=== PATIENT | female | born 1955 | race American Indian/Alaskan Native ===

== ENCOUNTER 2017-05-25 06:58 | Inpatient (IN) ==
[2017-05-25] MEDS ORDERED: IOPAMIDOL 100 ML BOTTLE IV ONE (06:59)
--- NOTE | 2017-05-25 07:43 | Emergency Department Note ---
General Adult HPI - General Chief complaint: Shortness of Breath/Dyspnea Stated complaint: shortness of breath, chest pain, flank pain Time Seen by Provider: 05/25/17 07:36 Source: patient Mode of arrival: ambulatory Limitations: no limitations - History of Present Illness HPI Narrative: This patient has had some flulike symptoms for last several days with nausea cough some shortness of breath. Also some ache over her low back and she does self catheterize for urinary incontinence no diarrhea, mild chest discomfort - Related Data Home Medications Medication Instructions Recorded Confirmed ALPRAZolam [Xanax] 0.5 - 1 mg PO PRN PRN 05/25/17 05/25/17 Albuterol Sulfate [Proair Hfa] 8.5 gm IH Q4-6HP PRN 05/25/17 05/25/17 Carvedilol [Coreg] 12.5 mg PO BIDCC 05/25/17 05/25/17 Cetirizine [Zyrtec] 10 mg PO HS 05/25/17 05/25/17 FLUoxetine HCL [Prozac] 60 mg PO DAILY 05/25/17 05/25/17 Hydrocodone/APAP 7.5/325Mg [[place] 1 tab PO TID 05/25/17 05/25/17 7.5-325Mg] Leflunomide [Arava] 20 mg PO DAILY 05/25/17 05/25/17 Losartan [Cozaar] 100 mg PO DAILY 05/25/17 05/25/17 Mometasone/Formoterol [Dulera 200 2 puff IH BID 05/25/17 05/25/17 Mcg/5 Mcg Inhaler] Propylene Glycol/Peg 400 15 ml OU QIDP PRN 05/25/17 05/25/17 [Lubricant Eye Drops] Tiotropium Medon [Spiriva] 18 mcg INH DAILY 05/25/17 05/25/17 predniSONE [Prednisone] 5 mg PO QAMCC 05/25/17 05/25/17 Previous Rx's Medication Instructions Recorded Azithromycin [Zithromax] 500 mg PO DAILY #6 tab 05/28/17 Cefdinir 300 mg PO BID #8 cap 05/28/17 Allergies Allergy/AdvReac Type Severity Reaction Status Date / Time No Known Drug Allergies Allergy Verified 05/25/17 07:03 Review of Systems All systems ED: reviewed and negative except as stated. Past Medical History - Past Medical History Medical history: Reports: arthritis (Rheumatoid), COPD Surgical history ED: Reports: non-contributory - Social History smoking status: Former smoker Alcohol use: Reports: Occasionally Physical Exam Limitations: no limitations General appearance: alert Head: atraumatic Eye: Present: normal appearance ENT: normal exam Neck: Present: normal inspection Chest: Present: normal inspection Respiratory: Present: normal lung sounds bilaterally Cardiovascular: Present: regular rate, normal rhythm, normal heart sounds Abdominal: Present: soft. Absent: distention, tenderness Neurological: Present: alert Psychiatric: Present: normal affect, normal mood Skin: Present: warm, dry, intact Course Vital Signs Temperature 98.0 F 05/25/17 06:59 Pulse Rate 107 H 05/25/17 06:59 Respiratory Rate 22 05/25/17 06:59 Blood Pressure 193/98 05/25/17 06:59 Pulse Oximetry (%) 98 05/25/17 06:59 Temperature 98.1 F 05/28/17 10:41 Pulse Rate 87 05/28/17 10:41 Respiratory Rate 16 05/28/17 10:41 Blood Pressure 148/78 05/28/17 10:41 Pulse Oximetry (%) 95 05/28/17 10:41 Medical Decision Making - Lab Data Lab results reviewed: Yes I reviewed the patient's lab results. Result diagrams: 05/28/17 04:40 05/28/17 04:40 Lab Results 05/25/17 05/25/17 05/25/17 Range/Units 07:27 07:27 07:27 WBC 13.9 H (4.5-11.0) K/mcL RBC 3.91 L (4.00-5.20) M/mcL Hgb 11.6 L (12.0-15.0) g/dL Hct 34.5 L (36.0-48.0) % MCV 88.1 (80.0-100.0) fL MCH 29.7 (26.0-34.0) pg MCHC 33.7 (31.0-36.0) g/dL RDW 14.6 H (11.5-14.5) % Plt Count 406 (140-440) K/mcL MPV 7.8 (7.4-10.4) fL Total Counted 100 Seg Neutrophils % 82 H (38-78) % Band Neutrophils % Not Reportable Lymphocytes % 14 L (15-49) % Monocytes % (Manual) 4 (1-12) % Platelet Estimate Normal (NORMAL) RBC Morphology Abnorm A (NORMAL) Anisocytosis Few A (NONE SEEN) ESR (0-20) mm/hr D-Dimer 2.09 H (0.00-0.40) ug/ml VBG Lactic Acid (0.5-2.2) mmol/L Sodium 136 (133-145) mmol/L Potassium 3.4 (3.3-5.1) mmol/L Chloride 97 (96-108) mmol/L Carbon Dioxide 22 (22-30) mmol/L Anion Gap 17.0 H (8-16) BUN 11 (8-23) mg/dl Creatinine 0.6 (0.6-1.1) mg/dl GFR Calculation 98 Glucose 108 H (70-105) mg/dL Calcium 9.2 (8.6-10.4) mg/dl Total Bilirubin 0.5 (0.0-1.0) mg/dL AST 30 (0-37) U/l ALT 35 (0-40) U/l Alkaline Phosphatase 102 (39-117) U/L Troponin T (0-0.03) ng/ml C-Reactive Protein (0.0-0.8) mg/dl Total Protein 7.3 (5.9-8.4) gm/dL Albumin 4.0 (3.2-5.2) gm/dL Globulin 3.3 (2.2-3.7) gm/dL Albumin/Globulin Ratio 1.2 (1.0-2.3) Urine Color Urine Appearance Urine pH (5.0-9.0) Ur Specific [place] (1.000-1.035) Urine Protein (NEG) mg/dL Urine Glucose (UA) (NEG) mg/dL Urine Ketones (NEG) mg/dL Urine Occult Blood (<0.03) mg/dL Urine Nitrate (NEG) Urine Bilirubin (NEG) mg/dL Urine Urobilinogen (NEG) mg/dL Ur Leukocyte Esterase (NEG) /uL Urine RBC (0-1) /hpf Urine WBC (0-4) /hpf Ur Squamous Epith Cells (0-4) /hpf Ur Transition Epith Cell (0-2) /hpf Urine Bacteria (0) /hpf Urine Mucus (0) /hpf Ur Culture Indicated? Ur L.pneumophila Ag Mycoplasma pneumon IgM (NEGATIVE) Ur Strep pneumoniae Ag (NEGATIVE) 05/25/17 05/25/17 05/25/17 Range/Units 07:27 07:27 07:27 WBC (4.5-11.0) K/mcL RBC (4.00-5.20) M/mcL Hgb (12.0-15.0) g/dL Hct (36.0-48.0) % MCV (80.0-100.0) fL MCH (26.0-34.0) pg MCHC (31.0-36.0) g/dL RDW (11.5-14.5) % Plt Count (140-440) K/mcL MPV (7.4-10.4) fL Total Counted Seg Neutrophils % (38-78) % Band Neutrophils % Lymphocytes % (15-49) % Monocytes % (Manual) (1-12) % Platelet Estimate (NORMAL) RBC Morphology (NORMAL) Anisocytosis (NONE SEEN) ESR 45 H (0-20) mm/hr D-Dimer (0.00-0.40) ug/ml VBG Lactic Acid (0.5-2.2) mmol/L Sodium (133-145) mmol/L Potassium (3.3-5.1) mmol/L Chloride (96-108) mmol/L Carbon Dioxide (22-30) mmol/L Anion Gap (8-16) BUN (8-23) mg/dl Creatinine (0.6-1.1) mg/dl GFR Calculation Glucose (70-105) mg/dL Calcium (8.6-10.4) mg/dl Total Bilirubin (0.0-1.0) mg/dL AST (0-37) U/l ALT (0-40) U/l Alkaline Phosphatase (39-117) U/L Troponin T < 0.01 (0-0.03) ng/ml C-Reactive Protein (0.0-0.8) mg/dl Total Protein (5.9-8.4) gm/dL Albumin (3.2-5.2) gm/dL Globulin (2.2-3.7) gm/dL Albumin/Globulin Ratio (1.0-2.3) Urine Color Urine Appearance Urine pH (5.0-9.0) Ur Specific [place] (1.000-1.035) Urine Protein (NEG) mg/dL Urine Glucose (UA) (NEG) mg/dL Urine Ketones (NEG) mg/dL Urine Occult Blood (<0.03) mg/dL Urine Nitrate (NEG) Urine Bilirubin (NEG) mg/dL Urine Urobilinogen (NEG) mg/dL Ur Leukocyte Esterase (NEG) /uL Urine RBC (0-1) /hpf Urine WBC (0-4) /hpf Ur Squamous Epith Cells (0-4) /hpf Ur Transition Epith Cell (0-2) /hpf Urine Bacteria (0) /hpf Urine Mucus (0) /hpf Ur Culture Indicated? Ur L.pneumophila Ag Mycoplasma pneumon IgM Positive A (NEGATIVE) Ur Strep pneumoniae Ag (NEGATIVE) 05/25/17 05/25/17 05/25/17 Range/Units 07:27 08:06 08:24 WBC (4.5-11.0) K/mcL RBC (4.00-5.20) M/mcL Hgb (12.0-15.0) g/dL Hct (36.0-48.0) % MCV (80.0-100.0) fL MCH (26.0-34.0) pg MCHC (31.0-36.0) g/dL RDW (11.5-14.5) % Plt Count (140-440) K/mcL MPV (7.4-10.4) fL Total Counted Seg Neutrophils % (38-78) % Band Neutrophils % Lymphocytes % (15-49) % Monocytes % (Manual) (1-12) % Platelet Estimate (NORMAL) RBC Morphology (NORMAL) Anisocytosis (NONE SEEN) ESR (0-20) mm/hr D-Dimer (0.00-0.40) ug/ml VBG Lactic Acid 1.6 (0.5-2.2) mmol/L Sodium (133-145) mmol/L Potassium (3.3-5.1) mmol/L Chloride (96-108) mmol/L Carbon Dioxide (22-30) mmol/L Anion Gap (8-16) BUN (8-23) mg/dl Creatinine (0.6-1.1) mg/dl GFR Calculation Glucose (70-105) mg/dL Calcium (8.6-10.4) mg/dl Total Bilirubin (0.0-1.0) mg/dL AST (0-37) U/l ALT (0-40) U/l Alkaline Phosphatase (39-117) U/L Troponin T (0-0.03) ng/ml C-Reactive Protein 1.3 H (0.0-0.8) mg/dl Total Protein (5.9-8.4) gm/dL Albumin (3.2-5.2) gm/dL Globulin (2.2-3.7) gm/dL Albumin/Globulin Ratio (1.0-2.3) Urine Color Yellow Urine Appearance Hazy Urine pH 8.0 (5.0-9.0) Ur Specific [place] 1.012 (1.000-1.035) Urine Protein 30 A (NEG) mg/dL Urine Glucose (UA) Negative (NEG) mg/dL Urine Ketones 20 A (NEG) mg/dL Urine Occult Blood >=1.0 A (<0.03) mg/dL Urine Nitrate Pos A (NEG) Urine Bilirubin Neg (NEG) mg/dL Urine Urobilinogen Neg (NEG) mg/dL Ur Leukocyte Esterase 75 A (NEG) /uL Urine RBC > 182 H (0-1) /hpf Urine WBC 26 H (0-4) /hpf Ur Squamous Epith Cells 1 (0-4) /hpf Ur Transition Epith Cell < 1 (0-2) /hpf Urine Bacteria Few A (0) /hpf Urine Mucus Few (0) /hpf Ur Culture Indicated? Yes Ur L.pneumophila Ag Mycoplasma pneumon IgM (NEGATIVE) Ur Strep pneumoniae Ag (NEGATIVE) 05/25/17 05/25/17 Range/Units 08:24 08:24 WBC (4.5-11.0) K/mcL RBC (4.00-5.20) M/mcL Hgb (12.0-15.0) g/dL Hct (36.0-48.0) % MCV (80.0-100.0) fL MCH (26.0-34.0) pg MCHC (31.0-36.0) g/dL RDW (11.5-14.5) % Plt Count (140-440) K/mcL MPV (7.4-10.4) fL Total Counted Seg Neutrophils % (38-78) % Band Neutrophils % Lymphocytes % (15-49) % Monocytes % (Manual) (1-12) % Platelet Estimate (NORMAL) RBC Morphology (NORMAL) Anisocytosis (NONE SEEN) ESR (0-20) mm/hr D-Dimer (0.00-0.40) ug/ml VBG Lactic Acid (0.5-2.2) mmol/L Sodium (133-145) mmol/L Potassium (3.3-5.1) mmol/L Chloride (96-108) mmol/L Carbon Dioxide (22-30) mmol/L Anion Gap (8-16) BUN (8-23) mg/dl Creatinine (0.6-1.1) mg/dl GFR Calculation Glucose (70-105) mg/dL Calcium (8.6-10.4) mg/dl Total Bilirubin (0.0-1.0) mg/dL AST (0-37) U/l ALT (0-40) U/l Alkaline Phosphatase (39-117) U/L Troponin T (0-0.03) ng/ml C-Reactive Protein (0.0-0.8) mg/dl Total Protein (5.9-8.4) gm/dL Albumin (3.2-5.2) gm/dL Globulin (2.2-3.7) gm/dL Albumin/Globulin Ratio (1.0-2.3) Urine Color Urine Appearance Urine pH (5.0-9.0) Ur Specific [place] (1.000-1.035) Urine Protein (NEG) mg/dL Urine Glucose (UA) (NEG) mg/dL Urine Ketones (NEG) mg/dL Urine Occult Blood (<0.03) mg/dL Urine Nitrate (NEG) Urine Bilirubin (NEG) mg/dL Urine Urobilinogen (NEG) mg/dL Ur Leukocyte Esterase (NEG) /uL Urine RBC (0-1) /hpf Urine WBC (0-4) /hpf Ur Squamous Epith Cells (0-4) /hpf Ur Transition Epith Cell (0-2) /hpf Urine Bacteria (0) /hpf Urine Mucus (0) /hpf Ur Culture Indicated? Ur L.pneumophila Ag Not detected Mycoplasma pneumon IgM (NEGATIVE) Ur Strep pneumoniae Ag Negative (NEGATIVE) - Radiology Data Radiology results reviewed: Yes I reviewed the patient's radiology results. Disposition Pt seen by [employer] INSPECTOR/PA only: No Clinical Impression: Right middle lobe pneumonia Disposition: Xfer As Inpt ([facility]) Condition: Fair
--- NOTE | 2017-05-25 07:50 | XRay Report ---
INDICATION: Dyspnea. Chest pain. TECHNIQUE: PA and lateral upright chest x-ray COMPARISON: Chest x-rays dated 05/23/2017, 03/31/2017, 02/11/2017, 05/04/2014 FINDINGS:Mild right lower lobe pulmonary parenchymal density may be secondary to pneumonia. Clinical correlation follow-up radiograph recommended. There is minimal blunting of a posterior costophrenic sulcus consistent with scarring or very small effusion. Lungs are otherwise negative. No change in heart size. No evidence for congestive heart failure. No hilar or mediastinal adenopathy. IMPRESSION: 1. Mild right lower lobe infiltrate consistent with pneumonia. Follow-up radiograph recommended 2. No other interval change Interpreted and Authenticated by: Spenser Bruno 05/25/17
[2017-05-25 07:54] LABS: Mean Cell Volume 88.1 fL (80.0-100.0); Mean Corpuscular HGB Conc 33.7 g/dL (31.0-36.0); Mean Corpuscular Hemoglobin 29.7 pg (26.0-34.0); Platelet Count 406 K/mcL (140-440); RBC 3.91 M/mcL (4.00-5.20); Red Cell Distribution Width 14.6 % (11.5-14.5)
[2017-05-25] MEDS ORDERED: DOXYCYCLINE 100 MG in DEXTROSE 5% IN WATER 100 ML IV ONE (07:56)
[2017-05-25] MEDS ORDERED: cefTRIAXone 1 GM VIAL IV ONE ×2 (07:56→16:00)
[2017-05-25] MEDS ORDERED: LACTATED RINGERS 1,000 ML IV ONE (08:07)
[2017-05-25 08:17] LABS: ALT/SGPT 35 U/l (0-40); Albumin/Globulin Ratio 1.2 (1.0-2.3); Alkaline Phosphatase 102 U/L (39-117); Blood Urea Nitrogen 11 mg/dl (8-23)
[2017-05-25 08:22] LABS: Anisocytosis FEW (NONE SEEN); Lymphocytes % 14 % (15-49); Monocytes % (Manual) 4 % (1-12); Platelet Estimate NORMAL (NORMAL); RBC Morphology ABNORM (NORMAL); Segmented Neutrophils % 82 % (38-78)
[2017-05-25 09:13] LABS: Appearance,Urine HAZY; Bacteria,Urine FEW /hpf (0); Bilirubin,Urine NEG (NEG); Color,Urine YELLOW; Glucose,Urine (UA) NEGATIVE (NEG); Leukocyte Esterase,Urine 75 /uL (NEG); Mucus,Urine FEW /hpf (0); Protein,Urine 30 mg/dL (NEG); Specific Gravity,Urine 1.012 (1.000-1.035); Urine Blood >=1.0 mg/dL (<0.03); Urine RBC > 182 /hpf (0-1); Urine Squamous Epithelial Cell 1 /hpf (0-4); Urine Transitional Epi Cells < 1 /hpf (0-2); Urine WBC 26 /hpf (0-4); Urobilinogen,Urine NEG (NEG)
[2017-05-25] MEDS ORDERED: IPRATROPIUM/ALBUTEROL 3 ML AMPUL.NEB NEB ONE ×2 (10:03→10:04)
--- NOTE | 2017-05-25 14:00 | Cat Scan Report ---
CLINICAL INFORMATION: Chest pain. Elevated d-dimer. COMPARISON: Chest x-ray dated 05/25/2017 TECHNIQUE: Axial images obtained through the chest. 80 mL intravenous contrast was administered, and scanning was performed during pulmonary arterial phase. Sagittally and coronally reformatted images were obtained. MIP reformatted images. FINDINGS: Main pulmonary artery, right pulmonary artery, left pulmonary artery are negative. No lobar, segmental, or subsegmental abnormalities. Negative examination for pulmonary embolism. There are is severe centrilobular emphysema suggesting smoking history. There is an 8 mm noncalcified nodule in the right middle lobe. No other pulmonary parenchymal nodules. Six month follow-up CT scan is recommended. There are small bilateral pleural effusions. There is mild lower lobe pulmonary parenchymal density, right worse in left. Findings may represent pneumonia or dependent atelectasis. There is mild cardiomegaly. No pathologic hilar or mediastinal lymphadenopathy. No axillary adenopathy. Incidental note is made of an 11 mm right thyroid nodule. Follow-up ultrasound is recommended Images to the upper abdomen are negative. Thoracic spine, sternum, ribs are negative IMPRESSION: 1. Negative pulmonary CTA. No pulmonary embolism 2. Small bilateral pleural effusions. Right worse than left pulmonary parenchymal density may indicate pneumonia or dependent atelectasis 3. Severe centrilobular emphysema 4. 8 mm right middle lobe nodule. Follow-up CT scan necessary 5. 11 mm right thyroid nodule. 6. Cardiomegaly The exam was performed using radiation dose optimization techniques including, but not limited to, automated exposure control, adjustment of the mA and/or kV according to patient size and use of iterative reconstruction technique. Interpreted and Authenticated by: Spenser Bruno 05/25/17
--- NOTE | 2017-05-25 14:13 | Emergency Department Note ---
SOB HPI - General Chief Complaint: Shortness of Breath/Dyspnea Stated Complaint: shortness of breath, chest pain, flank pain Time Seen by Provider: 05/25/17 07:36 Source: patient Mode of arrival: ambulatory Limitations: no limitations - Related Data Home Medications Medication Instructions Recorded Confirmed Mometasone/Formoterol [Dulera 100 1 puff INH DAILY 05/23/17 05/25/17 Mcg/5 Mcg Inhaler] Previous Rx's Medication Instructions Recorded predniSONE [Prednisone] 20 mg PO [id number] #10 tab 05/23/17 Allergies Allergy/AdvReac Type Severity Reaction Status Date / Time No Known Drug Allergies Allergy Verified 05/25/17 07:03 Past Medical History - Past Medical History Medical history: Reports: arthritis (Rheumatoid), COPD Surgical history ED: Reports: non-contributory - Social History smoking status: Former smoker Alcohol use: Reports: Occasionally Physical Exam Limitations: no limitations General appearance: alert Course Vital Signs Temperature 98.0 F 05/25/17 06:59 Pulse Rate 107 H 05/25/17 06:59 Respiratory Rate 22 05/25/17 06:59 Blood Pressure 193/98 05/25/17 06:59 Pulse Oximetry (%) 98 05/25/17 06:59 Temperature 99.3 F H 05/25/17 11:38 Pulse Rate 102 H 05/25/17 13:01 Respiratory Rate 23 H 05/25/17 13:31 Blood Pressure 190/93 05/25/17 13:31 Pulse Oximetry (%) 95 05/25/17 13:01 Shortness of Breath/Dyspnea - MDM Narrative Medical decision making narrative: CTA was negative but pneumonia present. Lactic was 1.0 patient was already given antibiotics by Dr. liao cultures have been drawn DR Pearce contacted and patient to be admitted - Lab Data Result diagrams: 05/25/17 07:27 05/25/17 07:27 Lab Results 05/25/17 05/25/17 05/25/17 Range/Units 07:27 07:27 07:27 WBC 13.9 H (4.5-11.0) K/mcL RBC 3.91 L (4.00-5.20) M/mcL Hgb 11.6 L (12.0-15.0) g/dL Hct 34.5 L (36.0-48.0) % MCV 88.1 (80.0-100.0) fL MCH 29.7 (26.0-34.0) pg MCHC 33.7 (31.0-36.0) g/dL RDW 14.6 H (11.5-14.5) % Plt Count 406 (140-440) K/mcL MPV 7.8 (7.4-10.4) fL Total Counted 100 Seg Neutrophils % 82 H (38-78) % Band Neutrophils % Not Reportable Lymphocytes % 14 L (15-49) % Monocytes % (Manual) 4 (1-12) % Platelet Estimate Normal (NORMAL) RBC Morphology Abnorm A (NORMAL) Anisocytosis Few A (NONE SEEN) D-Dimer 2.09 H (0.00-0.40) ug/ml VBG Lactic Acid (0.5-2.2) mmol/L Sodium 136 (133-145) mmol/L Potassium 3.4 (3.3-5.1) mmol/L Chloride 97 (96-108) mmol/L Carbon Dioxide 22 (22-30) mmol/L Anion Gap 17.0 H (8-16) BUN 11 (8-23) mg/dl Creatinine 0.6 (0.6-1.1) mg/dl GFR Calculation 98 Glucose 108 H (70-105) mg/dL Calcium 9.2 (8.6-10.4) mg/dl Total Bilirubin 0.5 (0.0-1.0) mg/dL AST 30 (0-37) U/l ALT 35 (0-40) U/l Alkaline Phosphatase 102 (39-117) U/L Troponin T (0-0.03) ng/ml Total Protein 7.3 (5.9-8.4) gm/dL Albumin 4.0 (3.2-5.2) gm/dL Globulin 3.3 (2.2-3.7) gm/dL Albumin/Globulin Ratio 1.2 (1.0-2.3) Urine Color Urine Appearance Urine pH (5.0-9.0) Ur Specific [place] (1.000-1.035) Urine Protein (NEG) mg/dL Urine Glucose (UA) (NEG) mg/dL Urine Ketones (NEG) mg/dL Urine Occult Blood (<0.03) mg/dL Urine Nitrate (NEG) Urine Bilirubin (NEG) mg/dL Urine Urobilinogen (NEG) mg/dL Ur Leukocyte Esterase (NEG) /uL Urine RBC (0-1) /hpf Urine WBC (0-4) /hpf Ur Squamous Epith Cells (0-4) /hpf Ur Transition Epith Cell (0-2) /hpf Urine Bacteria (0) /hpf Urine Mucus (0) /hpf Ur Culture Indicated? 05/25/17 05/25/17 05/25/17 Range/Units 07:27 08:06 08:24 WBC (4.5-11.0) K/mcL RBC (4.00-5.20) M/mcL Hgb (12.0-15.0) g/dL Hct (36.0-48.0) % MCV (80.0-100.0) fL MCH (26.0-34.0) pg MCHC (31.0-36.0) g/dL RDW (11.5-14.5) % Plt Count (140-440) K/mcL MPV (7.4-10.4) fL Total Counted Seg Neutrophils % (38-78) % Band Neutrophils % Lymphocytes % (15-49) % Monocytes % (Manual) (1-12) % Platelet Estimate (NORMAL) RBC Morphology (NORMAL) Anisocytosis (NONE SEEN) D-Dimer (0.00-0.40) ug/ml VBG Lactic Acid 1.6 (0.5-2.2) mmol/L Sodium (133-145) mmol/L Potassium (3.3-5.1) mmol/L Chloride (96-108) mmol/L Carbon Dioxide (22-30) mmol/L Anion Gap (8-16) BUN (8-23) mg/dl Creatinine (0.6-1.1) mg/dl GFR Calculation Glucose (70-105) mg/dL Calcium (8.6-10.4) mg/dl Total Bilirubin (0.0-1.0) mg/dL AST (0-37) U/l ALT (0-40) U/l Alkaline Phosphatase (39-117) U/L Troponin T < 0.01 (0-0.03) ng/ml Total Protein (5.9-8.4) gm/dL Albumin (3.2-5.2) gm/dL Globulin (2.2-3.7) gm/dL Albumin/Globulin Ratio (1.0-2.3) Urine Color Yellow Urine Appearance Hazy Urine pH 8.0 (5.0-9.0) Ur Specific [place] 1.012 (1.000-1.035) Urine Protein 30 A (NEG) mg/dL Urine Glucose (UA) Negative (NEG) mg/dL Urine Ketones 20 A (NEG) mg/dL Urine Occult Blood >=1.0 A (<0.03) mg/dL Urine Nitrate Pos A (NEG) Urine Bilirubin Neg (NEG) mg/dL Urine Urobilinogen Neg (NEG) mg/dL Ur Leukocyte Esterase 75 A (NEG) /uL Urine RBC > 182 H (0-1) /hpf Urine WBC 26 H (0-4) /hpf Ur Squamous Epith Cells 1 (0-4) /hpf Ur Transition Epith Cell < 1 (0-2) /hpf Urine Bacteria Few A (0) /hpf Urine Mucus Few (0) /hpf Ur Culture Indicated? Yes Disposition Pt seen by SHRUB GROWER/PA only: No Clinical Impression: Right middle lobe pneumonia Disposition: Xfer As Inpt ([facility]) Condition: Fair Referrals: Wu Brody ARNP [Primary Care Provider] -
[2017-05-25] MEDS ORDERED: guaiFENesin/CODEINE 10 ML UDC PO PRN (15:13)
[2017-05-25] MEDS ORDERED: ONDANSETRON 4 MG/2 ML VIAL IV PRN (15:13)
[2017-05-25] MEDS ORDERED: MAGNESIUM SULFATE 2 GM/50 ML BAG IV PRN (15:13)
[2017-05-25] MEDS ORDERED: traZODone HCL 50 MG TABLET PO PRN (15:13)
[2017-05-25] MEDS ORDERED: cefTRIAXone 2 GM in DEXTROSE 5% IN WATER 50 ML IV SCH (15:13)
[2017-05-25] MEDS ORDERED: POTASSIUM CHLORIDE 20 MEQ PACKET PO PRN (15:13)
[2017-05-25] MEDS: IPRATROPIUM/ALBUTEROL 3 ML AMPUL.NEB NEB SCH ×3 (15:19→23:20)
[2017-05-25] MEDS: 0.9 % SODIUM CHLORIDE 1,000 ML IV SCH (15:53)
[2017-05-25] MEDS: LEVOFLOXACIN 750 MG/150 ML BAG IV SCH (15:54)
[2017-05-25] MEDS: ACETAMINOPHEN 325 MG TABLET PO PRN (16:45)
[2017-05-25] MEDS ORDERED: PROPYLENE GLYCOL OU PRN (17:31)
[2017-05-25] MEDS ORDERED: PEG OU PRN (17:31)
--- NOTE | 2017-05-25 18:08 | History and Physical Report ---
DATE OF ADMISSION: 05/25/2017 DATE OF ADMISSION: 05/25/2017 PRIMARY CARE PHYSICIAN: KASSIE Pinzon REASON FOR ADMISSION: Shortness of breath. HISTORY OF CHIEF COMPLAINT: The patient is a 62-year-old who comes in to [facility] Emergency Room with progressive shortness of breath, dyspnea and had flu-like symptoms that started over 2 weeks and has progressed since Thursday. The patient was evaluated in the ER with worsening dyspnea; however, she had negative imaging. The patient was discharged home. However, over the next 24 hours, the patient continued to get worse with increasing fever, cough, loss of appetite, lethargy, weakness and unable to function. The patient subsequently came to the ER for further evaluation. Initial workup was significant for right lower lobe infiltrate, elevated D-dimer. CT angiogram was performed which was negative for PE. Hospitalist Service was consulted. At the time of evaluation, the patient is accompanied with her family. She was able to provide answers to most of the questions. She does endorse that she has had significant decline in functional status with inability to perform activities of daily living. She actively smoked, but quit one and a half months ago. She endorses loss of appetite. She denies any medication changes. She denies sick contacts, but has not had a flu or pneumonia vaccine. She endorses abdominal distention along with gas symptoms, along with persistent myalgia, which she attributes to rheumatoid arthritis but denies headache, photophobia, neck stiffness, urinary symptoms. REVIEW OF SYSTEMS: A 10-point review of systems was performed and negative except for what was discussed above. PAST MEDICAL HISTORY: Significant for: 1. Seasonal allergy disorder. 2. Rheumatoid arthritis. 3. COPD. 4. History of bladder tumor. The patient is due to follow up with Dr. Rutherford at [place]. ALLERGIES: NONE SIGNIFICANT. CURRENT MEDICATIONS: Prednisone 20. Mometasone inhaled daily. SOCIAL HISTORY: The patient lives with her sister. Anya. Occasional alcohol. Quit smoking 1-1/2 years ago after a 50 pack year history of smoking. PHYSICAL EXAMINATION: GENERAL: The patient is alert and oriented. BMI 17.7. Height 5 feet 9 inches. VITAL SIGNS: Blood pressure 181/81, respiratory rate 30, temperature 98, pulse 107, saturations 98 percent on room air. HEENT: Pupils symmetric. Oral cavity is dry. No ear or nose discharge. Head is normocephalic and atraumatic. Temporal wasting. NECK: No lymphadenopathy noted. HEART: S1, S2, tachycardia. ESM grade 1. CHEST: Diminished breath sounds at bases with bilateral posterior crackles on deep inspiration and expiratory rhonchi. ABDOMEN: Soft and nontender. LOWER EXTREMITIES: No cyanosis or clubbing. No joint swelling. SKIN: No suspicious lesions. PSYCHIATRIC: Alert and cooperative, mild anxiety. NEURO: Nonfocal, moving all four extremities. Normal higher function. LABS AND IMAGING: White count 13.9, hemoglobin 10.6, neutrophils 82 percent. Lactic acid 1.6, sodium 130, potassium 3.4, creatinine 0.6, BUN 11, CRP 1.3. LFTs unremarkable. UA significant for 26 WBCs, nitrite positive. Urine cultures pending. Blood cultures pending. Troponin less than 0.01. CT angiogram chest: Bilateral pleural effusion, pulmonary parenchymal density indicating pneumonia and 8 mm right middle lobe nodule. EKG: Sinus tachycardia. ASSESSMENT AND PLAN: A 62-year-old admitted with basilar pneumonia along with complicated urinary tract infection. 1. Basilar pneumonia. Continue antibiotic coverage with Rocephin, Levaquin and deescalate based on culture and sensitivities. Sputum cultures pending. Streptococcus pneumoniae/legionella/mycoplasma labs elevated. 2. Complicated urinary tract infection. Continue antibiotic coverage. Await cultures. 3. Generalized deconditioning. Physical therapy and occupational therapy along with dietitian for dietary supplements. 4. Prophylaxis will be on heparin. 5. FULL CODE. PLAN FOR TODAY: 1. Admit as inpatient. 2. Antibiotic coverage. 3. Bronchodilators, pulmonary toilet. 4. Deescalate antibiotics based on culture results. 5. The patient will be admitted as an inpatient in light of pneumonia and urinary tract infection with significant deconditioning. [email or web address] Job ID: [id number] Doc ID: [id number] Fran FERNANDO
[2017-05-25] MEDS: BUDESONIDE 0.5 MG/2 ML AMPUL.NEB NEB SCH (19:19)
[2017-05-25] MEDS: SENNOSIDES/DOCUSATE SODIUM 1 TAB TABLET PO SCH (20:57)
[2017-05-25] MEDS: DOCUSATE SODIUM 100 MG CAPSULE PO SCH (20:57)
[2017-05-25] MEDS: HYDROCODONE/APAP 7.5/325MG TABLET PO SCH (20:57)
[2017-05-25] MEDS: HEPARIN 5,000 UNIT/ML VIAL SQ SCH (20:58)
[2017-05-25] MEDS: 0.9 % SODIUM CHLORIDE 10 ML SYRINGE IV SCH (21:00)
[2017-05-26] MEDS: IPRATROPIUM/ALBUTEROL 3 ML AMPUL.NEB NEB SCH ×2 (03:34→07:30)
[2017-05-26] MEDS: 0.9 % SODIUM CHLORIDE 10 ML SYRINGE IV SCH ×3 (05:10→20:46)
[2017-05-26 05:50] LABS: Mean Cell Volume 88.3 fL (80.0-100.0); Mean Corpuscular HGB Conc 33.1 g/dL (31.0-36.0); Mean Corpuscular Hemoglobin 29.2 pg (26.0-34.0); Platelet Count 329 K/mcL (140-440); RBC 3.98 M/mcL (4.00-5.20); Red Cell Distribution Width 14.6 % (11.5-14.5)
[2017-05-26 06:21] LABS: ALT/SGPT 49 U/l (0-40); Albumin 3.5 gm/dL (3.2-5.2); Albumin/Globulin Ratio 1.1 (1.0-2.3); Alkaline Phosphatase 94 U/L (39-117); Bilirubin,Direct < 0.2 mg/dL (0.0-0.3); Blood Urea Nitrogen 6 mg/dl (8-23); Gamma Glutamyl Transpeptidase 103 U/L (5-36); Uric Acid 2.1 mg/dL (2.5-8.0)
[2017-05-26] MEDS: BUDESONIDE 0.5 MG/2 ML AMPUL.NEB NEB SCH (07:31)
[2017-05-26 07:55] LABS: Band Neutrophils % 1 % (0-10); Lymphocytes % 22 % (15-49); Monocytes % (Manual) 11 % (1-12); Platelet Estimate NORMAL (NORMAL); RBC Morphology NORMAL (NORMAL); Segmented Neutrophils % 66 % (38-78)
[2017-05-26] MEDS: ACETAMINOPHEN 325 MG TABLET PO PRN ×2 (09:10→19:10)
--- NOTE | 2017-05-26 10:10 | Internal Med Progress Note ---
Medical - PN: Subj Patient information: Note initiated : 05/26/17 at 10:06 am Service Date, if different from initiated Date: [] Patient: Silke Mc 62 y/o F admitted on 05/25/17 for SOB, Chest Pain, Flank Pain. Chief Complaint: [] Interval history: 62-year-old with history of COPD/emphysema admitted with flulike symptoms along with progressive shortness of breath over the last 2 weeks. Basilar infiltrates with a white count of 13.3. On antibiotic coverage with Rocephin/ Levaquin for empiric community acquired pathogen. 05/26-patient doing well. No overnight events. No concerns per staff. On room air oxygen. White count down to 9000. Mycoplasma IgM positive uggestive of Mycoplasma pneumonia. Cardiomegaly on CT scan with bilateral effusion. Echocardiogram pending - Constitutional Vitals: Vital Signs Temp Pulse Resp BP Pulse Ox 98.2 F 95 H 18 177/78 93 05/26/17 07:41 05/26/17 08:10 05/26/17 08:10 05/26/17 07:41 05/26/17 08:10 Period Temp Pulse Resp BP Sys/Gallagher Pulse Ox Last 24 Hr 97.5 F-99.3 F 86-103 16-30 158-195/72-94 93-96 Intake and Output 05/25/17 05/26/17 05/26/17 21:59 05:59 13:59 Intake Total 120 / 120 170 / 170 200 / 200 Output Total 300 / 300 200 / 200 Balance -180 / -180 -30 / -30 200 / 200 Weight 113 lb Intake & Output: Intake & Output 05/25/17 05/26/17 05/26/17 21:59 05:59 13:59 Intake Total 120 / 120 170 / 170 200 / 200 Output Total 300 / 300 200 / 200 Balance -180 / -180 -30 / -30 200 / 200 Weight 113 lb Intake: Oral 120 / 120 170 / 170 GI Tube Flush 200 / 200 Output: Urine Catheter Amount 300 / 300 200 / 200 Straight 200 / 200 Other: Meal Ice cream Percent of Meal Consumed 100% popcicle Feeding Ability Independent General appearance: cooperative, no acute distress Exam: alert and oriented nonlabored breathing No anxiety Medical - PN: Obj Da - Labs CBC & Chem 7: 05/26/17 04:30 05/26/17 04:30 Labs: Abnormal Lab Results 05/26/17 05/26/17 05/25/17 04:30 04:30 08:24 WBC RBC 3.98 L Hgb 11.6 L Hct 35.1 L RDW 14.6 H Seg Neutrophils % Lymphocytes % RBC Morphology Anisocytosis ESR D-Dimer Carbon Dioxide 21 L Anion Gap 17.0 H BUN 6 L Glucose Uric Acid 2.1 L GGT 103 H AST 66 H ALT 49 H C-Reactive Protein Urine Protein 30 A Urine Ketones 20 A Urine Occult Blood >=1.0 A Urine Nitrate Pos A Ur Leukocyte Esterase 75 A Urine RBC > 182 H Urine WBC 26 H Urine Bacteria Few A Mycoplasma pneumon IgM 05/25/17 05/25/17 05/25/17 07:27 07:27 07:27 WBC RBC Hgb Hct RDW Seg Neutrophils % Lymphocytes % RBC Morphology Anisocytosis ESR 45 H D-Dimer Carbon Dioxide Anion Gap BUN Glucose Uric Acid GGT AST ALT C-Reactive Protein 1.3 H Urine Protein Urine Ketones Urine Occult Blood Urine Nitrate Ur Leukocyte Esterase Urine RBC Urine WBC Urine Bacteria Mycoplasma pneumon IgM Positive A 05/25/17 05/25/17 05/25/17 07:27 07:27 07:27 WBC 13.9 H RBC 3.91 L Hgb 11.6 L Hct 34.5 L RDW 14.6 H Seg Neutrophils % 82 H Lymphocytes % 14 L RBC Morphology Abnorm A Anisocytosis Few A ESR D-Dimer 2.09 H Carbon Dioxide Anion Gap 17.0 H BUN Glucose 108 H Uric Acid GGT AST ALT C-Reactive Protein Urine Protein Urine Ketones Urine Occult Blood Urine Nitrate Ur Leukocyte Esterase Urine RBC Urine WBC Urine Bacteria Mycoplasma pneumon IgM Meds: Medications Acetaminophen (Tylenol) 650 mg PO Q4-6HP PRN PRN Reason: PAIN/FEVER > 101 Last Admin: 05/26/17 09:10 Dose: 650 mg Hydrocodone Bitart/Acetaminophen ([place] 7.5/325mg) 1 tab PO TID [facility] Last Admin: 05/25/17 20:57 Dose: 1 tab Albuterol Sulfate (Ventolin) 2.5 mg NEB Q2HP PRN PRN Reason: Shortness Of Breath Alprazolam (Xanax) 0.5 - 1 mg PO BIDP PRN PRN Reason: Anxiety Carvedilol (Coreg) 12.5 mg PO BIDCC [facility] Ceftriaxone Sodium (Rocephin) 2 gm IV Q24H [facility] Docusate Sodium (Colace) 100 mg PO BID [facility] Last Admin: 05/25/17 20:57 Dose: Not Given Fluoxetine HCl (Prozac) 60 mg PO DAILY [facility] Guaifenesin/Codeine Phosphate (Robitussin Ac) 10 ml PO Q4HP PRN PRN Reason: Cough Heparin Sodium (Porcine) (Heparin) 5,000 unit SQ Q12 [facility] Last Admin: 05/25/17 20:58 Dose: 5,000 unit Levofloxacin (Levaquin) 750 mg in 150 mls @ 100 mls/hr IV Q24H [facility] Last Admin: 05/25/17 15:54 Dose: 100 mls/hr Magnesium Sulfate (Magnesium Sulfate) 2 gm in 50 mls @ 50 mls/hr IV UD PRN PRN Reason: MG = or < 1.7 Sodium Chloride (Sodium Chloride 0.9%) 1,000 mls @ 50 mls/hr IV .Q20H [facility] Stop: 05/28/17 03:12 Last Admin: 05/25/17 15:53 Dose: 50 mls/hr Iron Carb/Multivit/[place]/Folic Acid (Multivitamin W/Minerals) 1 tab PO DAILY [facility] Leflunomide (Arava) 20 mg PO DAILY [facility] Losartan Potassium (Cozaar) 100 mg PO DAILY [facility] Ondansetron HCl (Zofran) 4 mg IV Q4-6HP PRN PRN Reason: Nausea And Vomiting Mometasone/Formoterol [Dulera] 100 Mcg/5 Mcg Inhaler 1 dose INH DAILY [facility] Propylene Glycol/Peg 400 [Lubricant Eye Drops] 1 dose OU QIDP PRN PRN Reason: Dry Eye(s) Potassium Chloride (Klor-Con) 40 meq PO DAILYP PRN PRN Reason: K+ < 3.5 Last Admin: 05/26/17 00:48 Dose: 40 meq Prednisone (Prednisone) 5 mg PO QAC [facility] Senna/Docusate Sodium (Senna Plus Tablet) 1 tab PO [facility] Last Admin: 05/25/17 20:57 Dose: Not Given Sodium Chloride (Saline Flush) 10 ml IV Q8 [facility] Last Admin: 05/26/17 05:10 Dose: Not Given Tiotropium [place] (Spiriva) 18 mcg INH DAILY [facility] Trazodone HCl (Desyrel) 50 mg PO HSP PRN PRN Reason: Insomnia Medical - PN: A/P - Time Spent With Patient Total time spent is greater than 50% in coordination of care (as documented) at patient's floor/unit and/or counseling patient: 15 - 24 minutes - Narrative A/P Narrative: assessment * basilar pneumonia-Mycoplasma positive. Continue azithromycin for 5 days. Continue Rocephin until strep pneumo negative. Bronchodilators and breathing treatment * Cardiomegaly with bilateral pleural effusion-echocardiogram * Ccomplicated UTI on antibiotic coverage with Rocephin * prophylaxis heparin * hematuria-outpatient follow-up with urology for bladder mass * Full code Plan * DC Levaquin and switched to Zithromax * Physical therapy * possible discharge in 24 hours with urology follow-up
[2017-05-26] MEDS ORDERED: AZITHROMYCIN 250 MG TABLET PO ONE (10:15)
[2017-05-26] MEDS: HEPARIN 5,000 UNIT/ML VIAL SQ SCH ×2 (10:33→20:45)
[2017-05-26] MEDS: predniSONE 5 MG TABLET PO SCH (10:35)
[2017-05-26] MEDS: CARVEDILOL 12.5 MG TABLET PO SCH ×2 (10:36→16:42)
[2017-05-26] MEDS: LOSARTAN 50 MG TABLET PO SCH (10:36)
[2017-05-26] MEDS: FLUoxetine HCL 20 MG CAPSULE PO SCH (10:37)
[2017-05-26] MEDS: MULTIVIT,THER IRON,CA,FA & MIN 1 TABLET PO SCH (10:39)
[2017-05-26] MEDS: DOCUSATE SODIUM 100 MG CAPSULE PO SCH ×2 (10:40→20:45)
[2017-05-26] MEDS: HYDROCODONE/APAP 7.5/325MG TABLET PO SCH ×3 (10:41→20:46)
[2017-05-26] MEDS: cefTRIAXone 2 GM VIAL IV SCH (10:49)
[2017-05-26] MEDS: LEVOFLOXACIN 750 MG/150 ML BAG IV SCH (11:19)
[2017-05-26] MEDS: 0.9 % SODIUM CHLORIDE 1,000 ML IV SCH (13:37)
[2017-05-26] MEDS: Mometasone/Formoterol [Dulera] 100 Mcg/5 Mcg Inhaler INH SCH (18:32)
[2017-05-26] MEDS: TIOTROPIUM BROMIDE 18 MCG INHALANT INH SCH (18:32)
[2017-05-26] MEDS: LEFLUNOMIDE 20 MG TABLET PO SCH (18:32)
[2017-05-26] MEDS: SENNOSIDES/DOCUSATE SODIUM 1 TAB TABLET PO SCH (20:46)
[2017-05-27] MEDS: ALBUTEROL SULFATE 2.5 MG/3 ML NEBULIZER NEB PRN ×2 (01:33→15:09)
[2017-05-27] MEDS: ALPRAZolam 0.5 MG TABLET PO PRN ×2 (03:56→20:31)
[2017-05-27] MEDS: 0.9 % SODIUM CHLORIDE 10 ML SYRINGE IV SCH ×3 (05:16→20:32)
[2017-05-27 05:53] LABS: Mean Cell Volume 88.9 fL (80.0-100.0); Mean Corpuscular HGB Conc 33.2 g/dL (31.0-36.0); Mean Corpuscular Hemoglobin 29.5 pg (26.0-34.0); Platelet Count 321 K/mcL (140-440); RBC 3.63 M/mcL (4.00-5.20); Red Cell Distribution Width 14.5 % (11.5-14.5)
[2017-05-27 06:44] LABS: ALT/SGPT 39 U/l (0-40); Albumin 3.5 gm/dL (3.2-5.2); Albumin/Globulin Ratio 1.3 (1.0-2.3); Alkaline Phosphatase 94 U/L (39-117); Bilirubin,Direct < 0.2 mg/dL (0.0-0.3); Blood Urea Nitrogen 8 mg/dl (8-23); Gamma Glutamyl Transpeptidase 92 U/L (5-36); Uric Acid 2.1 mg/dL (2.5-8.0)
[2017-05-27 07:47] LABS: Basophils % (Manual) 2 % (0-2); Eosinophils % (Manual) 1 % (0-7); Lymphocytes % 22 % (15-49); Monocytes % (Manual) 9 % (1-12); Platelet Estimate NORMAL (NORMAL); RBC Morphology NORMAL (NORMAL); Segmented Neutrophils % 66 % (38-78)
[2017-05-27] MEDS: 0.9 % SODIUM CHLORIDE 1,000 ML IV SCH (07:47)
[2017-05-27] MEDS: CARVEDILOL 12.5 MG TABLET PO SCH ×2 (07:57→17:06)
[2017-05-27] MEDS: predniSONE 5 MG TABLET PO SCH (07:57)
[2017-05-27] MEDS: LOSARTAN 50 MG TABLET PO SCH (08:36)
[2017-05-27] MEDS: HEPARIN 5,000 UNIT/ML VIAL SQ SCH ×2 (08:36→20:31)
[2017-05-27] MEDS: FLUoxetine HCL 20 MG CAPSULE PO SCH (08:36)
[2017-05-27] MEDS: HYDROCODONE/APAP 7.5/325MG TABLET PO SCH ×3 (08:36→20:32)
[2017-05-27] MEDS: MULTIVIT,THER IRON,CA,FA & MIN 1 TABLET PO SCH (08:37)
[2017-05-27] MEDS: AZITHROMYCIN 250 MG TABLET PO SCH (08:37)
[2017-05-27] MEDS: DOCUSATE SODIUM 100 MG CAPSULE PO SCH ×2 (08:37→20:32)
[2017-05-27] MEDS: TIOTROPIUM BROMIDE 18 MCG INHALANT INH SCH (08:38)
[2017-05-27] MEDS: cefTRIAXone 2 GM VIAL IV SCH (08:53)
[2017-05-27] MEDS: Mometasone/Formoterol [Dulera] 100 Mcg/5 Mcg Inhaler INH SCH (08:53)
[2017-05-27] MEDS: LEFLUNOMIDE 20 MG TABLET PO SCH (08:53)
--- NOTE | 2017-05-27 19:23 | Internal Med Progress Note ---
Medical - PN: Subj Patient information: Note initiated : 05/27/17 at 7:23 pm Service Date, if different from initiated Date: [] Patient: Silke Mc 62 y/o F admitted on 05/25/17 for SOB, Chest Pain, Flank Pain/Pneumonia, UTI. Chief Complaint: [] Interval history: 62-year-old with history of COPD/emphysema admitted with flulike symptoms along with progressive shortness of breath over the last 2 weeks. Basilar infiltrates with a white count of 13.3. On antibiotic coverage with Rocephin/ Levaquin for empiric community acquired pathogen. 05/26-patient doing well. No overnight events. No concerns per staff. On room air oxygen. White count down to 9000. Mycoplasma IgM positive uggestive of Mycoplasma pneumonia. Cardiomegaly on CT scan with bilateral effusion. Echocardiogram pending May 27- patient feels anxious and short of breath. Not quite baseline. However on room air.echocardiogram pending. Possible discharge in 24 hours. Scheduled outpatient PFT - Constitutional Vitals: Vital Signs Temp Pulse Resp BP Pulse Ox 98.6 F 85 16 149/89 97 05/27/17 16:00 05/27/17 16:00 05/27/17 16:00 05/27/17 16:00 05/27/17 16:00 Period Temp Pulse Resp BP Sys/Gallagher Pulse Ox Last 24 Hr 97.4 F-98.6 F 85-102 16-20 143-192/71-89 93-97 Intake and Output 05/27/17 05/27/17 05/27/17 05:59 13:59 21:59 Intake Total 600 / 600 400 / 400 1800 / 1800 Output Total 1000 / 1000 1600 / 1600 Balance -400 / -400 -1200 / -1200 1800 / 1800 Intake & Output: Intake & Output 05/27/17 05/27/17 05/27/17 05:59 13:59 21:59 Intake Total 600 / 600 400 / 400 1800 / 1800 Output Total 1000 / 1000 1600 / 1600 Balance -400 / -400 -1200 / -1200 1800 / 1800 Intake: Oral 600 / 600 400 / 400 800 / 800 GI Tube Flush 1000 / 1000 Output: Urine Catheter Amount 1000 / 1000 1600 / 1600 Other: Meal Breakfast Percent of Meal Consumed 100% Feeding Ability Independent General appearance: cooperative, no acute distress Exam: Alert and oriented Anxious Non labored breathing No Lymphedema Medical - PN: Obj Da - Labs CBC & Chem 7: 05/28/17 04:40 05/28/17 04:40 Labs: Abnormal Lab Results 05/27/17 05/27/17 05/26/17 04:26 04:26 04:30 WBC RBC 3.63 L Hgb 10.7 L Hct 32.3 L RDW Seg Neutrophils % Lymphocytes % RBC Morphology Anisocytosis ESR D-Dimer Carbon Dioxide 21 L 21 L Anion Gap 17.0 H BUN 6 L Creatinine 0.5 L Glucose Uric Acid 2.1 L 2.1 L GGT 92 H 103 H AST 66 H ALT 49 H C-Reactive Protein Urine Protein Urine Ketones Urine Occult Blood Urine Nitrate Ur Leukocyte Esterase Urine RBC Urine WBC Urine Bacteria Mycoplasma pneumon IgM 05/26/17 05/25/17 05/25/17 04:30 08:24 07:27 WBC RBC 3.98 L Hgb 11.6 L Hct 35.1 L RDW 14.6 H Seg Neutrophils % Lymphocytes % RBC Morphology Anisocytosis ESR D-Dimer Carbon Dioxide Anion Gap BUN Creatinine Glucose Uric Acid GGT AST ALT C-Reactive Protein 1.3 H Urine Protein 30 A Urine Ketones 20 A Urine Occult Blood >=1.0 A Urine Nitrate Pos A Ur Leukocyte Esterase 75 A Urine RBC > 182 H Urine WBC 26 H Urine Bacteria Few A Mycoplasma pneumon IgM 05/25/17 05/25/17 05/25/17 07:27 07:27 07:27 WBC RBC Hgb Hct RDW Seg Neutrophils % Lymphocytes % RBC Morphology Anisocytosis ESR 45 H D-Dimer 2.09 H Carbon Dioxide Anion Gap BUN Creatinine Glucose Uric Acid GGT AST ALT C-Reactive Protein Urine Protein Urine Ketones Urine Occult Blood Urine Nitrate Ur Leukocyte Esterase Urine RBC Urine WBC Urine Bacteria Mycoplasma pneumon IgM Positive A 05/25/17 05/25/17 07:27 07:27 WBC 13.9 H RBC 3.91 L Hgb 11.6 L Hct 34.5 L RDW 14.6 H Seg Neutrophils % 82 H Lymphocytes % 14 L RBC Morphology Abnorm A Anisocytosis Few A ESR D-Dimer Carbon Dioxide Anion Gap 17.0 H BUN Creatinine Glucose 108 H Uric Acid GGT AST ALT C-Reactive Protein Urine Protein Urine Ketones Urine Occult Blood Urine Nitrate Ur Leukocyte Esterase Urine RBC Urine WBC Urine Bacteria Mycoplasma pneumon IgM Meds: Medications Acetaminophen (Tylenol) 650 mg PO Q4-6HP PRN PRN Reason: PAIN/FEVER > 101 Last Admin: 05/26/17 19:10 Dose: 650 mg Hydrocodone Bitart/Acetaminophen ([place] 7.5/325mg) 1 tab PO TID [facility] Last Admin: 05/27/17 15:07 Dose: Not Given Albuterol Sulfate (Ventolin) 2.5 mg NEB Q2HP PRN PRN Reason: Shortness Of Breath Last Admin: 05/27/17 15:09 Dose: 2.5 mg Alprazolam (Xanax) 0.5 - 1 mg PO BIDP PRN PRN Reason: Anxiety Last Admin: 05/27/17 03:56 Dose: 1 mg Azithromycin (Zithromax) 500 mg PO DAILY [facility] Stop: 05/30/17 09:01 Last Admin: 05/27/17 08:37 Dose: 500 mg Carvedilol (Coreg) 12.5 mg PO BIDCC [facility] Last Admin: 05/27/17 17:06 Dose: 12.5 mg Ceftriaxone Sodium (Rocephin) 2 gm IV Q24H [facility] Last Admin: 05/27/17 08:53 Dose: 2 gm Docusate Sodium (Colace) 100 mg PO BID [facility] Last Admin: 05/27/17 08:37 Dose: 100 mg Fluoxetine HCl (Prozac) 60 mg PO DAILY [facility] Last Admin: 05/27/17 08:36 Dose: 60 mg Guaifenesin/Codeine Phosphate (Robitussin Ac) 10 ml PO Q4HP PRN PRN Reason: Cough Heparin Sodium (Porcine) (Heparin) 5,000 unit SQ Q12 [facility] Last Admin: 05/27/17 08:36 Dose: 5,000 unit Magnesium Sulfate (Magnesium Sulfate) 2 gm in 50 mls @ 50 mls/hr IV UD PRN PRN Reason: MG = or < 1.7 Sodium Chloride (Sodium Chloride 0.9%) 1,000 mls @ 50 mls/hr IV .Q20H [facility] Stop: 05/28/17 03:12 Last Admin: 05/27/17 07:47 Dose: Not Given Iron Carb/Multivit/[employer]/Folic Acid (Multivitamin W/Minerals) 1 tab PO DAILY [facility] Last Admin: 05/27/17 08:37 Dose: 1 tab Leflunomide (Arava) 20 mg PO DAILY [facility] Last Admin: 05/27/17 08:53 Dose: Not Given Losartan Potassium (Cozaar) 100 mg PO DAILY [facility] Last Admin: 05/27/17 08:36 Dose: 100 mg Ondansetron HCl (Zofran) 4 mg IV Q4-6HP PRN PRN Reason: Nausea And Vomiting Mometasone/Formoterol [Dulera] 100 Mcg/5 Mcg Inhaler 1 dose INH DAILY [facility] Last Admin: 05/27/17 08:53 Dose: 1 dose Propylene Glycol/Peg 400 [Lubricant Eye Drops] 1 dose OU QIDP PRN PRN Reason: Dry Eye(s) Potassium Chloride (Klor-Con) 40 meq PO DAILYP PRN PRN Reason: K+ < 3.5 Last Admin: 05/26/17 00:48 Dose: 40 meq Prednisone (Prednisone) 5 mg PO QAC [facility] Last Admin: 05/27/17 07:57 Dose: 5 mg Senna/Docusate Sodium (Senna Plus Tablet) 1 tab PO HS [facility] Last Admin: 05/26/17 20:46 Dose: 1 tab Sodium Chloride (Saline Flush) 10 ml IV Q8 [facility] Last Admin: 05/27/17 14:33 Dose: 10 ml Tiotropium [place] (Spiriva) 18 mcg INH DAILY [facility] Last Admin: 05/27/17 08:38 Dose: Not Given Trazodone HCl (Desyrel) 50 mg PO HSP PRN PRN Reason: Insomnia Medical - PN: A/P - Time Spent With Patient Total time spent is greater than 50% in coordination of care (as documented) at patient's floor/unit and/or counseling patient: 15 - 24 minutes - Narrative A/P Narrative: assessment * Basilar pneumonia-Mycoplasma positive. Continue azithromycin for 5 days. * Cardiomegaly with bilateral pleural effusion-echocardiogram Pending * Complicated UTI on antibiotic coverage with Rocephin * prophylaxis heparin * hematuria-outpatient follow-up with urology for bladder mass * Full code Plan * DC Levaquin and switched to Zithromax * Physical therapy * OP urology follow-up * DC in am
[2017-05-27] MEDS: SENNOSIDES/DOCUSATE SODIUM 1 TAB TABLET PO SCH (20:32)
[2017-05-28] MEDS: ALPRAZolam 0.5 MG TABLET PO PRN (03:34)
[2017-05-28 05:38] LABS: Mean Cell Volume 88.4 fL (80.0-100.0); Mean Corpuscular HGB Conc 33.2 g/dL (31.0-36.0); Mean Corpuscular Hemoglobin 29.4 pg (26.0-34.0); Platelet Count 303 K/mcL (140-440); Red Cell Distribution Width 14.7 % (11.5-14.5)
[2017-05-28 06:10] LABS: ALT/SGPT 48 U/l (0-40); Albumin 3.5 gm/dL (3.2-5.2); Albumin/Globulin Ratio 1.3 (1.0-2.3); Alkaline Phosphatase 106 U/L (39-117); Bilirubin,Direct < 0.2 mg/dL (0.0-0.3); Blood Urea Nitrogen 10 mg/dl (8-23); Gamma Glutamyl Transpeptidase 96 U/L (5-36); Uric Acid 2.2 mg/dL (2.5-8.0)
[2017-05-28 08:12] LABS: Anisocytosis FEW (NONE SEEN); Eosinophils % (Manual) 4 % (0-7); Lymphocytes % 27 % (15-49); Monocytes % (Manual) 13 % (1-12); Platelet Estimate NORMAL (NORMAL); RBC Morphology ABNORM (NORMAL); Segmented Neutrophils % 56 % (38-78)
[2017-05-28] MEDS: AZITHROMYCIN 250 MG TABLET PO SCH (08:49)
[2017-05-28] MEDS: DOCUSATE SODIUM 100 MG CAPSULE PO SCH (08:49)
[2017-05-28] MEDS: LOSARTAN 50 MG TABLET PO SCH (08:49)
[2017-05-28] MEDS: LEFLUNOMIDE 20 MG TABLET PO SCH (08:50)
[2017-05-28] MEDS: FLUoxetine HCL 20 MG CAPSULE PO SCH (08:50)
[2017-05-28] MEDS: predniSONE 5 MG TABLET PO SCH (08:50)
[2017-05-28] MEDS: HEPARIN 5,000 UNIT/ML VIAL SQ SCH (08:51)
[2017-05-28] MEDS: MULTIVIT,THER IRON,CA,FA & MIN 1 TABLET PO SCH (08:52)
[2017-05-28] MEDS: CARVEDILOL 12.5 MG TABLET PO SCH (08:53)
[2017-05-28] MEDS: TIOTROPIUM BROMIDE 18 MCG INHALANT INH SCH (08:55)
[2017-05-28] MEDS: cefTRIAXone 2 GM VIAL IV SCH (09:10)
[2017-05-28] MEDS: 0.9 % SODIUM CHLORIDE 10 ML SYRINGE IV SCH (09:10)
--- NOTE | 2017-05-28 09:44 | Discharge Summary ---
Medical - DS: Prov Patient information: Note initiated : 05/28/17 at 9:41 am Service Date, if different from initiated Date: [] Patient: Silke Mc 62 y/o F admitted on 05/25/17 for SOB, Chest Pain, Flank Pain/Pneumonia, UTI. Chief Complaint: [] Date of admission: 05/25/17 15:09 Discharge date: 05/28/17 Primary care physician: Wu Brody Medical - DS: Meds - Discharge Medications Prescriptions: Azithromycin [Zithromax] 500 mg PO DAILY #6 tab Cefdinir 300 mg PO BID #8 cap Active and Home Medications: Home Medications ALPRAZolam [Xanax] 0.5 - 1 mg PO PRN PRN 05/25/17 [History Confirmed 05/25/17 Last Taken Unknown] Albuterol Sulfate [Proair Hfa] 8.5 gm IH Q4-6HP PRN 05/25/17 [History Confirmed 05/25/17 Last Taken Unknown] Carvedilol [Coreg] 12.5 mg PO BIDCC 05/25/17 [History Confirmed 05/25/17 Last Taken Unknown] Cetirizine [Zyrtec] 10 mg PO HS 05/25/17 [History Confirmed 05/25/17 Last Taken Unknown] FLUoxetine HCL [Prozac] 60 mg PO DAILY 05/25/17 [History Confirmed 05/25/17 Last Taken Unknown] Hydrocodone/APAP 7.5/325Mg [[place] 7.5-325Mg] 1 tab PO TID 05/25/17 [History Confirmed 05/25/17 Last Taken 05/24/17] Leflunomide [Arava] 20 mg PO DAILY 05/25/17 [History Confirmed 05/25/17 Last Taken Unknown] Losartan [Cozaar] 100 mg PO DAILY 05/25/17 [History Confirmed 05/25/17 Last Taken Unknown] Mometasone/Formoterol [Dulera 200 Mcg/5 Mcg Inhaler] 2 puff IH BID 05/25/17 [ History Confirmed 05/25/17 Last Taken 05/24/17] Propylene Glycol/Peg 400 [Lubricant Eye Drops] 15 ml OU QIDP PRN 05/25/17 [ History Confirmed 05/25/17 Last Taken Unknown] Tiotropium [place] [Spiriva] 18 mcg INH DAILY 05/25/17 [History Confirmed Last Taken 05/24/17] predniSONE [Prednisone] 5 mg PO [facility] 05/25/17 [History Confirmed 05/25/17 Last Taken 05/24/17] Azithromycin [Zithromax] 500 mg PO DAILY #6 tab 05/28/17 [Rx Last Taken Unknown] Cefdinir 300 mg PO BID #8 cap 05/28/17 [Rx Last Taken Unknown] Medical - DS: Hosp Hospital course: DISCHARGE DIAGNOSIS * Basilar pneumonia-Mycoplasma positive. continue antibiotics for additional 3 days azithromycin/4 days oral cephalosporin * Cardiomegaly with bilateral pleural effusion-echocardiogram awaited. F/u PCP * UTI- nonpathogenic ascencion * prophylaxis heparin * hematuria-outpatient follow-up with urology for bladder mass [facility] 62-year-old with history of COPD/emphysema admitted with flulike symptoms along with progressive shortness of breath over the last 2 weeks. Basilar infiltrates with a white count of 13.3. On antibiotic coverage with Rocephin/ Levaquin for empiric community acquired pathogen. 05/26-patient doing well. No overnight events. No concerns per staff. On room air oxygen. White count down to 9000. Mycoplasma IgM positive uggestive of Mycoplasma pneumonia. Cardiomegaly on CT scan with bilateral effusion. Echocardiogram pending May 27- patient feels anxious and short of breath. Not quite baseline. However on room air.echocardiogram pending. Possible discharge in 24 hours. Scheduled outpatient PFT Discharge diagnosis: . - Time Spent with Patient Total time spent providing and/or coordinating discharge services: Greater than 30 minutes Medical - DS: Exam - Constitutional Vitals: Vital Signs Temp Pulse Pulse Resp BP Pulse Ox 05/28/17 07:03 98.5 F 16 195/87 92 05/28/17 05:21 90 26 H 175/80 94 05/28/17 04:12 98.4 F 94 H 28 H 180/88 92 05/28/17 03:30 98.4 F 117 H 28 H 223/92 92 05/28/17 00:00 98.0 F 89 24 H 168/80 90 05/27/17 20:00 98.6 F 89 22 155/74 94 05/27/17 16:00 98.6 F 85 16 149/89 97 03/21/18 15:09 90 18 05/27/17 11:58 98.4 F 91 H 16 143/88 97 Intake and Output 05/27/17 05/28/17 05/28/17 21:59 05:59 13:59 Intake Total 1800 / 1800 500 / 500 Output Total 575 / 575 Balance 1800 / 1800 -75 / -75 Intake: Oral 800 / 800 500 / 500 GI Tube Flush 1000 / 1000 Output: Urine Catheter Amount 575 / 575 Other: # Bowel Movements 1 # of times incontinent of 1 Bowels Weight 113 lb 8 oz Medical - DS: Data Labs on day of discharge: Labs from last 24 hours 05/28/17 05/28/17 04:40 04:40 WBC 8.8 RBC 3.70 L Hgb 10.9 L Hct 32.7 L MCV 88.4 MCH 29.4 MCHC 33.2 RDW 14.7 H Plt Count 303 MPV 8.3 Total Counted 100 Seg Neutrophils % 56 Band Neutrophils % Not Reportable Lymphocytes % 27 Monocytes % (Manual) 13 H Eosinophils % (Manual) 4 Platelet Estimate Normal RBC Morphology Abnorm A Anisocytosis Few A Sodium 139 Potassium 4.0 Chloride 102 Carbon Dioxide 22 Anion Gap 15.0 BUN 10 Creatinine 0.5 L GFR Calculation 104 Glucose 96 Uric Acid 2.2 L Calcium 9.0 Phosphorus 4.0 Magnesium 1.8 Total Bilirubin < 0.2 Direct Bilirubin < 0.2 GGT 96 H AST 54 H ALT 48 H Alkaline Phosphatase 106 Lactate Dehydrogenase 202 Total Protein 6.3 Albumin 3.5 Globulin 2.8 Albumin/Globulin Ratio 1.3 Triglycerides 150 Preliminary micro results at discharge 05/25/17 08:06 Blood Culture - Preliminary Blood 05/25/17 08:13 Blood Culture - Preliminary Blood Medical - DS: A/P - Patient/Caregiver Discharge Instructions Activity: increase activity as tolerated Diet: Regular Diet Additional Instructions: Follow-up PCP in 5 days follow-up urology for bladder mass evaluation I recommend PCP to check CBC BMP UA as a posthospital follow-up and Chest x- ray in 1 week. Antibiotics for 4 Days Please schedule pulmonary function test as outpatient in 3 weeks Continue aggressive bowel regimen to prevent constipation Continue fall precautions Return to ER if worsening fever chills shortness of breath, diarrhea, bleeding Review risk and side effect profile of medications including antibiotics. Side effect may include mild to severe reaction including rash, diarrhea, cdiff and even which can be prevented by close follow-up with PCP and monitoring for side effects Refrain from smoking and alcohol Continue diet and activity as advised Discussed importance of medication adherence Please review medication list with patient prior to discharge Please schedule follow-up with PCP/Providers prior to discharge and provide printouts Portions of this chart may have been created with [employer] voice recognition software. Occasional wrong-word or ?sound-like? substitutions may have occurred due to the inherent limitations of voice recognition software. Please read the chart carefully and recognize, using context, where the substitutions have occurred. CC- PCP Prescriptions: Azithromycin [Zithromax] 500 mg PO DAILY #6 tab Cefdinir 300 mg PO BID #8 cap - Follow up Plan Follow up with: Wu Brody ARNP [Primary Care Provider] - Disposition: Home, Self-Care Prognosis: Fair Rehab Potential: Fair I certify that the patient requires SNF services: No Overall status at discharge: patient is progressing back to baseline
== END 2017-05-28 11:00 | disposition home or self-care (01) | DRG 194 ==
LOC: ED 06:58 → MEDSUR 15:09
PROVIDERS: ADMIT Internal Medicine; ATTEND Internal Medicine

== ENCOUNTER 2018-01-14 23:41 | Inpatient (IN) ==
[2018-01-14] MEDS ORDERED: ONDANSETRON 4 MG/2 ML VIAL IV ONE (23:59)
[2018-01-15] MEDS: LACTATED RINGERS 1,000 ML IV SCH ×3 (00:05→09:43)
[2018-01-15] MEDS ORDERED: LEVOFLOXACIN 750 MG/150 ML BAG IV ONE (00:20)
[2018-01-15] MEDS ORDERED: PROMETHAZINE 25 MG/ML VIAL IV ONE (00:21)
[2018-01-15 00:57] LABS: Basophils # (Auto) 0.1 K/mcL (0.0-0.3); Basophils % (Auto) 1.2 % (0.0-2.0); Eosinophils # (Auto) 0 K/mcL (0.0-0.7); Eosinophils % (Auto) 0.4 % (0.0-7.0); Granulocytes % (Auto) 55.1 % (38.0-78.0); Lymphocytes # (Auto) 2.1 K/mcL (1.5-4.8); Mean Cell Volume 80.3 fL (80.0-100.0); Mean Corpuscular HGB Conc 32.7 g/dL (31.0-36.0); Mean Corpuscular Hemoglobin 26.3 pg (26.0-34.0); Monocytes % (Auto) 14.3 % (1.0-12.0); Platelet Count 489 K/mcL (140-440); Red Cell Distribution Width 18.2 % (11.5-14.5)
[2018-01-15] MEDS ORDERED: 0.9 % SODIUM CHLORIDE 250 ML IV SCH (01:00)
[2018-01-15 01:02] LABS: Appearance,Urine HAZY; Bacteria,Urine FEW /hpf (0); Bilirubin,Urine NEG (NEG); Color,Urine YELLOW; Glucose,Urine (UA) NEGATIVE (NEG); Leukocyte Esterase,Urine 250 /uL (NEG); Mucus,Urine MANY /hpf (0); Protein,Urine NEG (NEG); Specific Gravity,Urine 1.019 (1.000-1.035); Urine Blood NEG mg/dL (<0.03); Urine RBC 5 /hpf (0-1); Urine Squamous Epithelial Cell 5 /hpf (0-4); Urine Transitional Epi Cells < 1 /hpf (0-2); Urine WBC 86 /hpf (0-4); Urobilinogen,Urine NEG (NEG)
[2018-01-15 01:09] LABS: ALT/SGPT 19 U/l (0-40); Albumin 3.1 gm/dL (3.2-5.2); Albumin/Globulin Ratio 1.1 (1.0-2.3); Alkaline Phosphatase 135 U/L (39-117); Blood Urea Nitrogen 24 mg/dl (8-23)
[2018-01-15 01:13] LABS: Amphetamine Screen,Urine NONE DETECTED (NONDETECTED); Benzodiazepines Screen,Urine NONE DETECTED (NONDETECTED); Cocaine Screen,Urine NONE DETECTED (NONDETECTED); Oxycodone, Urine Screen NONE DETECTED (NONDETECTED)
[2018-01-15] MEDS: 0.9 % SODIUM CHLORIDE 1,000 ML IV SCH ×3 (02:15→12:30)
[2018-01-15 05:54] LABS: Opiate Screen,Urine SUSPECT POSITIVE (NONDETECTED)
--- NOTE | 2018-01-15 06:04 | XRay Report ---
INDICATION: COPD. Dyspnea. TECHNIQUE: AP chest x-ray, portable semiupright COMPARISON: Previous chest x-rays dated 01/13/2018, 06/03/2017 FINDINGS: Right-sided chemotherapy infusion catheter with its tip in the superior vena cava. This is unchanged. There is hyperinflation consistent with COPD. No focal pulmonary parenchymal infiltrate or mass. No pneumonia. Heart size and vascularity are within normal limits. No pulmonary edema. No pulmonary congestion. No acute abnormality. No significant interval change IMPRESSION: 1. Findings consistent with COPD 2. No acute abnormality. No interval change Interpreted and Authenticated by: Spenser Bruno 01/15/18
--- NOTE | 2018-01-15 07:26 | Emergency Department Note ---
General Adult HPI - General Chief complaint: Shortness of Breath/Dyspnea Stated complaint: shortness of breath Time Seen by Provider: 01/14/18 23:50 Source: patient Mode of arrival: ambulatory Limitations: no limitations - History of Present Illness HPI Narrative: This patient began to feel short of breath about 45 minutes ago. She does have a history of COPD but does not seem to be in much respiratory distress on arrival in the emergency room. She is also slightly nauseated. She has a recent diagnosis of bladder cancer and has been undergoing chemotherapy. She also had a recent UTI and quit taking antibiotics about 2 weeks ago. - Related Data Home Medications Medication Instructions Recorded Confirmed FLUoxetine HCL [Prozac] 60 mg PO DAILY 05/25/17 01/15/18 Losartan [Cozaar] 100 mg PO DAILY 05/25/17 01/15/18 predniSONE [Prednisone] 10 mg PO QAC 05/25/17 01/15/18 bupropion HCl SR 150 mg tablet,12 150 mg PO BID 06/25/17 01/15/18 hr sustained-release carvedilol 12.5 mg tablet 12.5 mg PO BID tab 07/07/17 01/15/18 ALPRAZolam [Xanax] 1 mg PO BIDP PRN 01/15/18 01/15/18 Albuterol Sulfate [Ventolin] 1 - 2 puff INH Q4HP PRN 01/15/18 01/15/18 HYDROcodone/ACETAMINOPHEN [[place] 1 each PO Q4-6HP PRN 01/15/18 01/15/18 5-325 Tablet] Leflunomide [Arava] 10 mg PO ONCE 01/15/18 01/15/18 Mometasone/Formoterol [[place]ul[place] 200 2 puff IH BID 01/15/18 01/15/18 Mcg/5 Mcg Inhaler] Allergies Allergy/AdvReac Type Severity Reaction Status Date / Time No Known Drug Allergies Allergy Verified 01/14/18 23:54 Review of Systems Constitutional: Denies: fever, chills Cardiovascular: Denies: chest pain Respiratory: Reports: shortness of breath, cough Gastrointestinal: Reports: nausea. Denies: abdominal pain Genitourinary: Denies: dysuria Musculoskeletal: Denies: back pain Integumentary: Denies: rash Past Medical History - Past Medical History PMF Narrative: Medical History (Last Reviewed 07/07/17 @ 13:59 by Nathan Green MD) Self-catheterizes urinary bladder (Chronic) Dizziness (Chronic) Eczze-Cztkxoisk-Weqvy (WPW) pattern (Chronic) Aortic valve regurgitation (Chronic) Headache (Chronic) Dry eye (Chronic) Hypermetropia of both eyes (Chronic) Cough (Chronic) EKG, abnormal (Chronic) Otalgia, left ear (Chronic) URI (upper respiratory infection) (Chronic) Abdominal pain (Chronic) Psychological factors affecting medical condition (Chronic) Vitamin A deficiency (Chronic) Nuclear senile cataract of both eyes (Chronic) Presbyopia (Chronic) Hypermetropia (Chronic) Astigmatism (Chronic) Hyperlipidemia (Chronic) Chronic pain (Chronic) Bladder outlet obstruction (Chronic) Stenosis of celiac artery (Chronic) High risk for fracture due to osteoporosis by DEXA scan (Chronic) Stenosis of right renal artery (Chronic) Hypertension, essential (Chronic) On prednisone therapy (Chronic) 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) Smoking (Chronic) Depressive disorder (Chronic) Pain management contract signed (Chronic) Rheumatoid arthritis (Chronic) Hypertensive disorder (Chronic) Atypical cluster headache (Chronic) Abnormal intravenous pyelogram (Chronic) Chronic urinary tract infection (Chronic) Frequent UTI (Chronic) Chronic daily headache (Chronic) Insomnia (Chronic) Moderate major depression (Chronic) Peptic ulcer (Chronic) Temporomandibular joint disorder (Chronic) Emphysema lung (Chronic) Bronchitis (Chronic) SOB (shortness of breath) (Chronic) Pulmonary nodule, right (Chronic) Normal cardiac stress test (Chronic) Past Surgical History (Last Reviewed 07/07/17 @ 13:59 by Nathan Green MD) H/O bladder repair surgery (Chronic) H/O cystoscopy (Chronic) H/O dilation of urethra (Chronic) H/O: hysterectomy (Chronic) History of tonsillectomy and adenoidectomy (Chronic) Hx of appendectomy (Chronic) Family History (Last Reviewed 07/07/17 @ 13:59 by Nathan Green MD) Father Myocardial infarction acute Sister Breast cancer, Onset Age: 53 Family/Other Osteosarcoma, Onset Age: 30 Grandmother Breast cancer, Onset Age: 60 Family/Other Heart attack Heart disease Family/Other Heart attack Heart disease Family/Other Heart transplant recipient Heart attack Heart disease Grandfather CHF (congestive heart failure) Heart disease Family/Other Heart attack Heart disease Mother COPD (chronic obstructive pulmonary disease) Family/Other Uterine cancer Medical history: Reports: arthritis (Rheumatoid), COPD Surgical history ED: Reports: non-contributory - Social History smoking status: Former smoker Alcohol use: Reports: Occasionally Physical Exam Limitations: no limitations General appearance: alert, in no apparent distress Head: atraumatic Eye: Present: normal appearance ENT: normal exam Neck: Present: normal inspection Chest: Present: normal inspection Respiratory: Present: other (Scattered rhonchi) Cardiovascular: Present: regular rate, normal rhythm, normal heart sounds Abdominal: Present: soft. Absent: distention, tenderness Rectal: Present: normal inspection, heme (-) stool. Absent: mass, tenderness Neurological: Present: alert Psychiatric: Present: normal affect Skin: Present: warm, dry, intact Course Vital Signs Temperature 96.8 F L 01/14/18 23:41 Pulse Rate 120 H 01/14/18 23:41 Respiratory Rate 18 01/14/18 23:41 Blood Pressure 188/89 01/14/18 23:41 Pulse Oximetry (%) 99 01/14/18 23:41 Temperature 97.7 F 01/15/18 06:34 Pulse Rate 104 H 01/15/18 04:40 Respiratory Rate 18 01/15/18 06:34 Blood Pressure 163/70 01/15/18 06:34 Pulse Oximetry (%) 98 01/15/18 06:34 Medical Decision Making - MDM Narrative Medical decision making narrative: Patient's hemoglobin was quite low at 6.6. 6 months ago was in the 10 range. Did not find any source of active bleeding. She does have a urinary tract infection. Chest x-ray only showed COPD. Blood gases were completely normal. She will be admitted to the hospital for a 3 unit blood transfusion. We did give her Levaquin IV and did blood cultures. - Lab Data Lab results reviewed: Yes I reviewed the patient's lab results. Result diagrams: 01/15/18 00:06 01/15/18 00:06 Lab Results 01/15/18 01/15/18 01/15/18 Range/Units 00:06 00:06 00:06 WBC 7.3 (4.5-11.0) K/mcL RBC 2.50 L (4.00-5.20) M/mcL Hgb 6.6 L* (12.0-15.0) g/dL Hct 20.1 L* (36.0-48.0) % POC Hct (36.0-48.0) % MCV 80.3 (80.0-100.0) fL MCH 26.3 (26.0-34.0) pg MCHC 32.7 (31.0-36.0) g/dL RDW 18.2 H (11.5-14.5) % Plt Count 489 H (140-440) K/mcL MPV 6.9 L (7.4-10.4) fL Gran % 55.1 (38.0-78.0) % Lymph % (Auto) 29.0 (15.5-49.0) % Marion % (Auto) 14.3 H (1.0-12.0) % Eos % (Auto) 0.4 (0.0-7.0) % Baso % (Auto) 1.2 (0.0-2.0) % Gran # 4.0 (1.8-8.0) K/mcL Lymph # (Auto) 2.1 (1.5-4.8) K/mcL Marion # (Auto) 1.0 H (0.1-0.9) K/mcL Eos # (Auto) 0 (0.0-0.7) K/mcL Baso # (Auto) 0.1 (0.0-0.3) K/mcL VBG Lactic Acid (0.5-2.0) mmol/L POC Sodium (133-145) mmol/L Sodium 135 (133-145) mmol/L POC Potassium (3.3-5.1) mmol/L Potassium 3.1 L (3.3-5.1) mmol/L POC Chloride (96-108) mmol/L Chloride 101 (96-108) mmol/L Carbon Dioxide 23 (22-30) mmol/L POC Total CO2 (22-30) mmol/L Anion Gap 11.0 (8-16) POC BUN (8-23) mg/dl BUN 24 H (8-23) mg/dl Creatinine 0.5 L (0.6-1.1) mg/dl POC Creatinine (0.6-1.1) mg/dl GFR Calculation 104 Glucose 151 H (70-105) mg/dL POC Glucose (70-105) mg/dL Calcium 8.6 (8.6-10.4) mg/dl POC WB Ioniz Calcium (1.16-1.32) mmol/L Total Bilirubin < 0.2 (0.0-1.0) mg/dL AST 17 (0-37) U/l ALT 19 (0-40) U/l Alkaline Phosphatase 135 H (39-117) U/L Troponin T < 0.01 (0-0.03) ng/ml Total Protein 5.9 (5.9-8.4) gm/dL Albumin 3.1 L (3.2-5.2) gm/dL Globulin 2.8 (2.2-3.7) gm/dL Albumin/Globulin Ratio 1.1 (1.0-2.3) Urine Color Urine Appearance Urine pH (5.0-9.0) Ur Specific [place] (1.000-1.035) Urine Protein (NEG) mg/dL Urine Glucose (UA) (NEG) mg/dL Urine Ketones (NEG) mg/dL Urine Occult Blood (<0.03) mg/dL Urine Nitrate (NEG) Urine Bilirubin (NEG) mg/dL Urine Urobilinogen (NEG) mg/dL Ur Leukocyte Esterase (NEG) /uL Urine RBC (0-1) /hpf Urine WBC (0-4) /hpf Ur Squamous Epith Cells (0-4) /hpf Ur Transition Epith Cell (0-2) /hpf Urine Bacteria (0) /hpf Urine Mucus (0) /hpf Ur Culture Indicated? Urine Opiates Screen (NONDETECTED) Ur Opiates Confirm Ur Oxycodone Screen (NONDETECTED) Urine Methadone Screen (NONDETECTED) Ur Methadone Confirm Ur Barbiturates Screen (NONDETECTED) Ur Barbiturate Confirm Ur Phencyclidine Scrn (NONDETECTED) Urine PCP Confirm Ur Amphetamines Screen (NONDETECTED) U Amphetamines Confirm U Benzodiazepines Scrn (NONDETECTED) U Benzodiazepine Confm Urine Cocaine Screen (NONDETECTED) Urine Cocaine Confirm U Cannabinoids Confirm U Marijuana (THC) Screen (NONDETECTED) 01/15/18 01/15/18 01/15/18 Range/Units 00:06 00:20 00:20 WBC (4.5-11.0) K/mcL RBC (4.00-5.20) M/mcL Hgb (12.0-15.0) g/dL Hct (36.0-48.0) % POC Hct (36.0-48.0) % MCV (80.0-100.0) fL MCH (26.0-34.0) pg MCHC (31.0-36.0) g/dL RDW (11.5-14.5) % Plt Count (140-440) K/mcL MPV (7.4-10.4) fL Gran % (38.0-78.0) % Lymph % (Auto) (15.5-49.0) % [place] % (Auto) (1.0-12.0) % Eos % (Auto) (0.0-7.0) % Baso % (Auto) (0.0-2.0) % Gran # (1.8-8.0) K/mcL Lymph # (Auto) (1.5-4.8) K/mcL [place] # (Auto) (0.1-0.9) K/mcL Eos # (Auto) (0.0-0.7) K/mcL Baso # (Auto) (0.0-0.3) K/mcL VBG Lactic Acid 2.1 H (0.5-2.0) mmol/L POC Sodium (133-145) mmol/L Sodium (133-145) mmol/L POC Potassium (3.3-5.1) mmol/L Potassium (3.3-5.1) mmol/L POC Chloride (96-108) mmol/L Chloride (96-108) mmol/L Carbon Dioxide (22-30) mmol/L POC Total CO2 (22-30) mmol/L Anion Gap (8-16) POC BUN (8-23) mg/dl BUN (8-23) mg/dl Creatinine (0.6-1.1) mg/dl POC Creatinine (0.6-1.1) mg/dl GFR Calculation Glucose (70-105) mg/dL POC Glucose (70-105) mg/dL Calcium (8.6-10.4) mg/dl POC WB Ioniz Calcium (1.16-1.32) mmol/L Total Bilirubin (0.0-1.0) mg/dL AST (0-37) U/l ALT (0-40) U/l Alkaline Phosphatase (39-117) U/L Troponin T (0-0.03) ng/ml Total Protein (5.9-8.4) gm/dL Albumin (3.2-5.2) gm/dL Globulin (2.2-3.7) gm/dL Albumin/Globulin Ratio (1.0-2.3) Urine Color Yellow Urine Appearance Hazy Urine pH 6.0 (5.0-9.0) Ur Specific [place] 1.019 (1.000-1.035) Urine Protein Neg (NEG) mg/dL Urine Glucose (UA) Negative (NEG) mg/dL Urine Ketones 5/tr A (NEG) mg/dL Urine Occult Blood Neg (<0.03) mg/dL Urine Nitrate Neg (NEG) Urine Bilirubin Neg (NEG) mg/dL Urine Urobilinogen Neg (NEG) mg/dL Ur Leukocyte Esterase 250 A (NEG) /uL Urine RBC 5 H (0-1) /hpf Urine WBC 86 H (0-4) /hpf Ur Squamous Epith Cells 5 H (0-4) /hpf Ur Transition Epith Cell < 1 (0-2) /hpf Urine Bacteria Few A (0) /hpf Urine Mucus Many A (0) /hpf Ur Culture Indicated? No Urine Opiates Screen Suspect positive A (NONDETECTED) Ur Opiates Confirm Not Reportable Ur Oxycodone Screen None detected (NONDETECTED) Urine Methadone Screen None detected (NONDETECTED) Ur Methadone Confirm Not Reportable Ur Barbiturates Screen None detected (NONDETECTED) Ur Barbiturate Confirm Not Reportable Ur Phencyclidine Scrn None detected (NONDETECTED) Urine PCP Confirm Not Reportable Ur Amphetamines Screen None detected (NONDETECTED) U Amphetamines Confirm Not Reportable U Benzodiazepines Scrn None detected (NONDETECTED) U Benzodiazepine Confm Not Reportable Urine Cocaine Screen None detected (NONDETECTED) Urine Cocaine Confirm Not Reportable U Cannabinoids Confirm Not Reportable U Marijuana (THC) Screen None detected (NONDETECTED) 01/15/18 Range/Units 01:17 WBC (4.5-11.0) K/mcL RBC (4.00-5.20) M/mcL Hgb (12.0-15.0) g/dL Hct (36.0-48.0) % POC Hct 17.0 L* (36.0-48.0) % MCV (80.0-100.0) fL MCH (26.0-34.0) pg MCHC (31.0-36.0) g/dL RDW (11.5-14.5) % Plt Count (140-440) K/mcL MPV (7.4-10.4) fL Gran % (38.0-78.0) % Lymph % (Auto) (15.5-49.0) % [place] % (Auto) (1.0-12.0) % Eos % (Auto) (0.0-7.0) % Baso % (Auto) (0.0-2.0) % Gran # (1.8-8.0) K/mcL Lymph # (Auto) (1.5-4.8) K/mcL [place] # (Auto) (0.1-0.9) K/mcL Eos # (Auto) (0.0-0.7) K/mcL Baso # (Auto) (0.0-0.3) K/mcL VBG Lactic Acid (0.5-2.0) mmol/L POC Sodium 138 (133-145) mmol/L Sodium (133-145) mmol/L POC Potassium 3.1 L (3.3-5.1) mmol/L Potassium (3.3-5.1) mmol/L POC Chloride 103 (96-108) mmol/L Chloride (96-108) mmol/L Carbon Dioxide (22-30) mmol/L POC Total CO2 23 (22-30) mmol/L Anion Gap (8-16) POC BUN 23 (8-23) mg/dl BUN (8-23) mg/dl Creatinine (0.6-1.1) mg/dl POC Creatinine 0.5 L (0.6-1.1) mg/dl GFR Calculation Glucose (70-105) mg/dL POC Glucose 114 H (70-105) mg/dL Calcium (8.6-10.4) mg/dl POC WB Ioniz Calcium 0.91 L (1.16-1.32) mmol/L Total Bilirubin (0.0-1.0) mg/dL AST (0-37) U/l ALT (0-40) U/l Alkaline Phosphatase (39-117) U/L Troponin T (0-0.03) ng/ml Total Protein (5.9-8.4) gm/dL Albumin (3.2-5.2) gm/dL Globulin (2.2-3.7) gm/dL Albumin/Globulin Ratio (1.0-2.3) Urine Color Urine Appearance Urine pH (5.0-9.0) Ur Specific [place] (1.000-1.035) Urine Protein (NEG) mg/dL Urine Glucose (UA) (NEG) mg/dL Urine Ketones (NEG) mg/dL Urine Occult Blood (<0.03) mg/dL Urine Nitrate (NEG) Urine Bilirubin (NEG) mg/dL Urine Urobilinogen (NEG) mg/dL Ur Leukocyte Esterase (NEG) /uL Urine RBC (0-1) /hpf Urine WBC (0-4) /hpf Ur Squamous Epith Cells (0-4) /hpf Ur Transition Epith Cell (0-2) /hpf Urine Bacteria (0) /hpf Urine Mucus (0) /hpf Ur Culture Indicated? Urine Opiates Screen (NONDETECTED) Ur Opiates Confirm Ur Oxycodone Screen (NONDETECTED) Urine Methadone Screen (NONDETECTED) Ur Methadone Confirm Ur Barbiturates Screen (NONDETECTED) Ur Barbiturate Confirm Ur Phencyclidine Scrn (NONDETECTED) Urine PCP Confirm Ur Amphetamines Screen (NONDETECTED) U Amphetamines Confirm U Benzodiazepines Scrn (NONDETECTED) U Benzodiazepine Confm Urine Cocaine Screen (NONDETECTED) Urine Cocaine Confirm U Cannabinoids Confirm U Marijuana (THC) Screen (NONDETECTED) - Radiology Data Radiology results reviewed: Yes I reviewed the patient's radiology results. Disposition Pt seen by PRINCIPAL EXAMINER/PA only: No Clinical Impression: Acute exacerbation of chronic obstructive airways disease, Anemia, Urinary tract infection Disposition: Xfer As Inpt ([facility]) Condition: Fair
--- NOTE | 2018-01-15 08:07 | Internal Med History&Physical ---
Medical - H&P: HPI Patient information: Note initiated : 01/15/18 at 8:04 am Service Date, if different from initiated Date: [] Patient: Silke Mc 63 y/o F admitted on 01/15/18 for Shortness of breath. Chief Complaint: dyspnea History of present illness: Ms. Mc is a 63 year old F with stage IV bladder cancer, hypertension and history of hypertension emergency in pulmonary edema, COPD, bladder dysfunction requiring self-catheterization who presents to the ED late on the evening of 01/14 with dyspnea. History is obtained speaking with the patient, as well as reviewing old records obtained from [facility], and clinic records from [facility]. Patient state that she had fairly sudden onset of not being able to breathe that awoke her from sleep. She did not notice any change in the sensation of dyspnea when she stood up. She's noted no lower extremity edema. She's had no wheezing. About the last 4 days she's had a cough but it's been nonproductive. For the last few days she's felt a little feverish, had a maximum temperature 99.4. She's had no chills. She is also complaining of some mid chest pain which is achiness. It gets a little bit worse with respirations. Been ongoing since last evening. It does not radiate, not associated with nausea or vomiting. She states she had a similar presentation about 3 months ago, when she was hospitalized at [facility]. At that time secondary to high blood pressure and fluid on her lungs. That discharge summary indicates she was treated for hypertensive emergency with acute pulmonary edema. Amlodipine was added to her regimen at that time, though I do not see it on her current med list ( attempting to clarify her home meds). The patient has dyspnea on exertion, secondary to her lung disease, that been stable and unchanged. In the emergency department, evaluation revealed critical anemia with a hemoglobin of 6.6. She tells me she had blood work done yesterday which was "okay". Currently attempting to obtain those records from [facility]. She denies any nausea or vomiting, no hematemesis. No diarrhea. No blood in her stool, or dark tarry stools. No hematuria. No hemoptysis. She did receive chemotherapy, records indicate that was gemcitabine and carboplatin. Does approximate 3 weeks ago. She was due to have chemotherapy today (which appeared delayed 2 weeks due to an Escherichia coli and Morganella urinary tract infection on about 12/29/17). ED evaluation also showed pyuria with few bacteria on microscopic and a few epithelial cells. Patient does have bladder dysfunction and routinely does self-catheterization. It's been ongoing for several years. She does indicate that the onset of some suprapubic discomfort last evening. Patient is admitted secondary to critical anemia, dyspnea and urinary tract infection. All systems: reviewed and no additional remarkable complaints except as stated Medical - H&P: PMH Medical history: Emphysema lung (Chronic) Seen on CT Bronchitis (Chronic) Seen on CT SOB (shortness of breath) (Chronic) Pulmonary nodule, right (Chronic) Right middle lobe pulmonary nodule 6x7.5 mm and right lower lobe nodule 2.2 mm Normal cardiac stress test (Chronic) 03/23/2017 Stenosis of celiac artery (Chronic) Moderate stenosis on MRA Stenosis of right renal artery (Chronic) High grade stenosis of mid portion of right renal artery on CT/MRA Hypertension, essential (Chronic) Hyperlipidemia (Chronic) Self-catheterizes urinary bladder (Chronic) Dizziness (Chronic) Tlfqw-Gapbzgnal-Lfoii (WPW) pattern (Chronic) Aortic valve regurgitation (Chronic) Headache (Chronic) Otalgia, left ear (Chronic) Abdominal pain (Chronic) Psychological factors affecting medical condition (Chronic) Vitamin A deficiency (Chronic) Nuclear senile cataract of both eyes (Chronic) Presbyopia (Chronic) Astigmatism (Chronic) Dry eye (Chronic) Hypermetropia of both eyes (Chronic) Chronic pain (Chronic) Bladder outlet obstruction (Chronic) High risk for fracture due to osteoporosis by DEXA scan (Chronic) 04/08/11 High risk lt/rt hip On prednisone therapy (Chronic) 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) Smoking (Chronic) Depressive disorder (Chronic) Pain management contract signed (Chronic) Rheumatoid arthritis (Chronic) Atypical cluster headache (Chronic) Abnormal intravenous pyelogram (Chronic) Chronic urinary tract infection (Chronic) Frequent UTI (Chronic) Chronic daily headache (Chronic) Insomnia (Chronic) Moderate major depression (Chronic) Peptic ulcer (Chronic) Temporomandibular joint disorder (Chronic) Surgical history: H/O bladder repair surgery (Chronic) 1969 Bladder obstruction repair H/O cystoscopy (Chronic) 2000 H/O dilation of urethra (Chronic) 1997 H/O: hysterectomy (Chronic) 1993 History of tonsillectomy and adenoidectomy (Chronic) Hx of appendectomy (Chronic) 1976 Pertinent family history: Father Myocardial infarction acute Mother COPD (chronic obstructive pulmonary disease) Sister Breast cancer, Onset Age: 53 Grandmother Breast cancer, Onset Age: 60 Grandfather CHF (congestive heart failure) Heart disease Family/Other Osteosarcoma, Onset Age: 30 Family/Other Heart transplant recipient Heart attack Heart disease Family/Other Uterine cancer Social history: household members: family marital status: 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 smoking status: Former smoker quit date: 03/09/17 pack-years: 52 alcohol intake frequency: a few times a month substance use type: does not use Medical - H&P: Meds Home Medications Medication Instructions Recorded Confirmed Type FLUoxetine HCL [Prozac] 60 mg PO DAILY 05/25/17 01/15/18 History Losartan [Cozaar] 100 mg PO DAILY 05/25/17 01/15/18 History predniSONE [Prednisone] 10 mg PO QAC 05/25/17 01/15/18 History bupropion HCl SR 150 mg tablet,12 150 mg PO BID 06/25/17 01/15/18 History hr sustained-release carvedilol 12.5 mg tablet 12.5 mg PO BID tab 07/07/17 01/15/18 History ALPRAZolam [Xanax] 1 mg PO BIDP PRN 01/15/18 01/15/18 History Albuterol Sulfate [Ventolin] 1 - 2 puff INH Q4HP PRN 01/15/18 01/15/18 History HYDROcodone/ACETAMINOPHEN [Valliant 1 each PO Q4-6HP PRN 01/15/18 01/15/18 History 5-325 Tablet] Leflunomide [Arava] 10 mg PO ONCE 01/15/18 01/15/18 History Mometasone/Formoterol [Dulera 200 2 puff IH BID 01/15/18 01/15/18 History Mcg/5 Mcg Inhaler] Allergies Allergy/AdvReac Type Severity Reaction Status Date / Time No Known Drug Allergies Allergy Verified 01/14/18 23:54 Medical - H&P: Exam - Constitutional Vitals: Temp Pulse Resp BP Pulse Ox 97.7 F 96 H 18 163/70 97 01/15/18 06:34 01/15/18 07:28 01/15/18 06:34 01/15/18 06:34 01/15/18 07:28 Exam: GENERAL: Alert, oriented, thin, in no acute distress. HEENT: Atraumatic. PERRL, conjunctiva clear, no scleral icterus. Hearing grossly intact. Oropharynx with moist mucous membranes, tongue midline. NECK: Supple without meningismus, no thyromegaly RESPIRATORY: Breath sounds clear bilaterally without rales, wheezes or rhonchi. Respiratory effort is unlabored. CARDIOVASCULAR: Mildly tachycardic with soft rub at left sternal border. No murmur appreciated. No peripheral edema. Neck veins are approximately 1 cm above the clavicle while sitting at 60. Carotids are 2+. Tunneled port catheter in the right IJ. GI: Abdomen soft, mild to moderate suprapubic tenderness to palpation. Bowel sounds are present. No hepatosplenomegaly. LYMPHATIC: No cervical or supraclavicular lymphadenopathy appreciated MUSCULOSKELETAL: No joint erythema or swelling, normal range of motion in all extremities. SKIN: Intact, warm, dry. Skin turgor normal. NEUROLOGIC: Cranial nerves II through XII grossly intact. Muscle mass mildly diminished. Strength 5/5 in the upper and lower extremities. Sensation intact to light touch bilaterally. Deep tendon reflexes 2+ at the biceps and patella. PSYCHIATRIC: Alert, oriented x3, normal mood and affect, normal insight. Medical - H&P: Reslt - Labs CBC & Chem 7: 01/15/18 00:06 01/15/18 00:06 Labs: Short CBC 01/15/18 Range/Units 00:06 WBC 7.3 (4.5-11.0) K/mcL Hgb 6.6 L* (12.0-15.0) g/dL Hct 20.1 L* (36.0-48.0) % Plt Count 489 H (140-440) K/mcL BMP 01/15/18 00:06 Sodium 135 Potassium 3.1 L Chloride 101 Carbon Dioxide 23 BUN 24 H Creatinine 0.5 L Glucose 151 H Calcium 8.6 Cardiac Enzymes 01/15/18 Range/Units 00:06 Troponin T < 0.01 (0-0.03) ng/ml Liver Function 01/15/18 Range/Units 00:06 Total Bilirubin < 0.2 (0.0-1.0) mg/dL AST 17 (0-37) U/l ALT 19 (0-40) U/l Alkaline Phosphatase 135 H (39-117) U/L Albumin 3.1 L (3.2-5.2) gm/dL Urine 01/15/18 Range/Units 00:20 Urine Color Yellow Urine Appearance Hazy Urine pH 6.0 (5.0-9.0) Ur Specific [place] 1.019 (1.000-1.035) Urine Protein Neg (NEG) mg/dL Urine Glucose (UA) Negative (NEG) mg/dL - ABG Interpretation ABG results: 7.50/35/75 - EKG Data -: EKG Reviewed by Myself (ST, 114; LVH, 1mm ST depression V3-V6) - Imaging and Cardiology Chest x-ray Status: image reviewed by me Additional comments: IMPRESSION: 1. Findings consistent with COPD 2. No acute abnormality. No interval change Medical - H&P: A/P (1) Anemia Current visit: Yes Status: Acute (2) Bladder cancer metastasized to intrapelvic lymph nodes Current visit: Yes Status: Acute (3) Hypertension, essential Current visit: No Status: Chronic (4) Frequent UTI Current visit: No Status: Chronic (5) SOB (shortness of breath) Current visit: No Status: Chronic (6) COPD (chronic obstructive pulmonary disease) Current visit: No Status: Chronic - Narrative A/P Narrative: 63-year-old female with metastatic bladder cancer, frequent UTIs secondary to self-catheterization, COPD, presenting with dyspnea, found to have critical anemia and also rub on exam. Dyspnea. Patient has not significantly improved after 2 units of packed red blood cells. Third unit is transfusing. She has no cough, no sputum production , good air movement without wheezing. She is feeling short of breath at rest. She has a rub on exam, concerning for possible pericarditis. She also has an achiness in her left chest. Pulmonary embolism would also be high on the differential given her metastatic cancer. COPD exacerbation seems less likely. Neck veins are mildly elevated, but does not appear to be floridly overloaded or in congestive heart failure. Initial troponin is below limit of detection, acute coronary syndrome as less likely. Plan: Admission Continue transfusing packed red cells Follow-up hemoglobin after transfusion Stat echocardiogram to evaluate for pericardial effusion or pending tamponade Clarify home medications, sure she is on her home antihypertensive regimen Repeat EKG, evaluate for ST changes We'll consider CT angiogram of the chest to rule out PE Anemia. Unclear etiology. Awaiting laboratory from earlier this week from [facility]. No evidence of GI or blood loss. No back pain to suggest retroperitoneal hemorrhage. Concern for possible pericarditis with possible hemorrhage, though that would be unlikely to explain her critical anemia. May be secondary to delayed effect of chemotherapy (gemcitabine and carboplatin). Plan: Transfuse 3 units packed cells, which is ongoing, follow hemoglobin, obtain old labs. COPD. Was seen in consultation by Dr. Green earlier this year, PFTs did not get obtained as she was subsequently diagnosed with metastatic bladder cancer and has been undergoing treatment and evaluation for that. Currently no evidence of exacerbation. Plan: Continue with home regimen. Pyuria with some bacteriuria. Patient has frequent UTIs, has pyuria currently, could be inflammatory and related to cancer and self-catheterization. Received first dose of antibiotics in the ED. Plan: Follow up urine culture, will continue antibiotics given her relative immunocompromise state secondary to chemotherapy. Will stop if culture negative. Hypertension. Blood pressure currently elevated, clarifying her home antihypertensive regimen. Plan: Continue with current regimen, add additional agents when home meds are clarified. CODE STATUS: Full code. Prophylaxis: SCDs, no pharmacologic prophylaxis given her critical anemia and concern for blood loss. Medical - H&P: Qual - VTE Deep Vein Thrombosis/Pulmonary Embolism Present on Admission: No
[2018-01-15] MEDS ORDERED: ONDANSETRON 4 MG/2 ML VIAL IV PRN (10:10)
[2018-01-15] MEDS ORDERED: ACETAMINOPHEN 325 MG TABLET PO PRN (10:10)
[2018-01-15] MEDS ORDERED: PANTOPRAZOLE 40 MG TABLET PO SCH (10:10)
[2018-01-15] MEDS ORDERED: predniSONE 5 MG TABLET PO SCH (10:16)
[2018-01-15] MEDS ORDERED: buPROPion 150 MG TAB.SR.12H PO SCH (10:16)
[2018-01-15] MEDS ORDERED: CARVEDILOL 12.5 MG TABLET PO SCH (10:16)
[2018-01-15] MEDS ORDERED: HYDROcodone/APAP 5/325MG TABLET PO PRN (10:16)
[2018-01-15] MEDS ORDERED: FLUoxetine HCL 20 MG CAPSULE PO SCH (10:16)
[2018-01-15] MEDS ORDERED: 0.9 % SODIUM CHLORIDE 1,000 ML IV SCH (10:18)
[2018-01-15] MEDS ORDERED: ALPRAZolam 0.5 MG TABLET PO PRN (10:23)
[2018-01-15] MEDS ORDERED: Mometasone/Formoterol [Dulera 200 Mcg/5 Mcg Inhaler] PO SCH (10:30)
[2018-01-15 12:35] LABS: Basophils # (Auto) 0.1 K/mcL (0.0-0.3); Basophils % (Auto) 0.9 % (0.0-2.0); Eosinophils # (Auto) 0 K/mcL (0.0-0.7); Eosinophils % (Auto) 0.3 % (0.0-7.0); Lymphocytes # (Auto) 2.2 K/mcL (1.5-4.8); Mean Cell Volume 84.6 fL (80.0-100.0); Mean Corpuscular HGB Conc 33.1 g/dL (31.0-36.0); Monocytes # (Auto) 1.2 K/mcL (0.1-0.9); Monocytes % (Auto) 11.8 % (1.0-12.0); Platelet Count 395 K/mcL (140-440); RBC 3.91 M/mcL (4.00-5.20)
[2018-01-15 12:54] LABS: Retic Absolute 2.6 % (0.5-1.5)
[2018-01-15] MEDS ORDERED: PANTOPRAZOLE 80 MG in 0.9 % SODIUM CHLORIDE 100 ML IV SCH (13:00)
[2018-01-15 13:19] LABS: Blood Urea Nitrogen 20 mg/dl (8-23)
[2018-01-15 13:22] LABS: Haptoglobin 302 mg/dl (30-200)
[2018-01-15] MEDS ORDERED: POTASSIUM CHLORIDE 20 MEQ in DEXTROSE 5% IN WATER 250 ML IV ONE (13:39)
[2018-01-15] MEDS ORDERED: 0.9 % SODIUM CHLORIDE 10 ML SYRINGE IV SCH (14:00)
[2018-01-15] MEDS ORDERED: LEVOFLOXACIN 500 MG/100 ML BAG IV SCH (15:00)
--- NOTE | 2018-01-15 15:11 | Transfer Summary ---
Transfer Discharge Sum: Prov Patient information: Note initiated : 01/15/18 at 3:05 pm Service Date, if different from initiated Date: [] Patient: Silke Mc 63 y/o F admitted on 01/15/18 for Shortness of breath. Date of admission: 01/15/18 02:41 Discharge Date: 01/15/18 Primary care physician: Wu Brody Admitting clinician: Hailey Hdz Consults: 01/15/18 Consult to Physician [CONS] Stat Comment: Consulting Provider: Hailey Hdz Reason For Exam: Physician to Consult Discharging clinician: Hailey Hdz Receiving physician/facility: [facility] Transfer Discharge Sum: Diag - Discharge Diagnosis (1) GI bleed Status: Acute (2) Anemia Status: Acute (3) Bladder cancer metastasized to intrapelvic lymph nodes Status: Chronic (4) Hypertension, essential Status: Chronic (5) Frequent UTI Status: Chronic (6) COPD (chronic obstructive pulmonary disease) Status: Chronic Transfer Discharge Sum: Med - Medications Active and Home Medications: Home Medications RX: FLUoxetine HCL [Prozac] 60 mg PO DAILY 05/25/17 [History Confirmed 01/15/18] RX: Losartan [Cozaar] 100 mg PO DAILY 05/25/17 [History Confirmed 01/15/18] RX: predniSONE [Prednisone] 10 mg PO [facility] 05/25/17 [History Confirmed 01/15/18] bupropion HCl SR 150 mg tablet,12 hr sustained-release 150 mg PO BID 06/25/17 [ History Confirmed 01/15/18] carvedilol 12.5 mg tablet 12.5 mg PO BID tab 07/07/17 [History Confirmed ] ALPRAZolam [Xanax] 1 mg PO BIDP PRN 01/15/18 [History Confirmed 01/15/18] Albuterol Sulfate [Ventolin] 1 - 2 puff INH Q4-6HP PRN 01/15/18 [History Confirmed 01/15/18] Docusate Sodium [Colace] 100 mg PO BID 01/15/18 [History Confirmed 01/15/18] Ferrous Sulfate [Iron] 325 mg PO QAC 01/15/18 [History Confirmed 01/15/18] Furosemide [Lasix] 20 mg PO DAILY 01/15/18 [History Confirmed 01/15/18] HYDROcodone/ACETAMINOPHEN [[place] 5-325 Tablet] 1 tab PO QIDP PRN 01/15/18 [ History Confirmed 01/15/18] Leflunomide [Arava] 10 mg PO ONCE 01/15/18 [History Confirmed 01/15/18] Mometasone/Formoterol [Dulera 200 Mcg/5 Mcg Inhaler] 2 puff IH BID 01/15/18 [ History Confirmed 01/15/18] Ondansetron [Zofran Odt] 8 mg PO TIDP PRN 01/15/18 [History Confirmed 01/15/18] Oxybutynin Chloride [Ditropan Xl] 5 mg PO DAILY 01/15/18 [History Confirmed 11/24] RX: Albuterol Sulfate 1 vial IH Q4-6HP PRN 01/15/18 [History Confirmed 01/15/18] RX: Leflunomide 20 mg PO DAILY 01/15/18 [History Confirmed 01/15/18] Rosuvastatin [Crestor] 10 mg PO HS 01/15/18 [History Confirmed 01/15/18] Tiotropium [place] [Spiriva] 18 mcg INH DAILY 01/15/18 [History Confirmed ] amLODIPine [Norvasc] 10 mg PO DAILY 01/15/18 [History Confirmed 01/15/18] Active Medications Acetaminophen (Tylenol) 650 mg PO Q6HP PRN PRN Reason: PAIN/FEVER > 101 Hydrocodone Bitart/Acetaminophen ([place] 5/325mg) 1 tab PO Q4-6HP PRN PRN Reason: Pain Alprazolam (Xanax) 1 mg PO BIDP PRN PRN Reason: Anxiety Bupropion HCl (Wellbutrin Sr) 150 mg PO BID ON LICENSE OF [facility] Last Admin: 01/15/18 11:03 Dose: 150 mg Carvedilol (Coreg) 12.5 mg PO BID ON LICENSE OF [facility] Last Admin: 01/15/18 11:04 Dose: 12.5 mg Fluoxetine HCl (Prozac) 60 mg PO DAILY ON LICENSE OF [facility] Last Admin: 01/15/18 11:04 Dose: 60 mg Levofloxacin (Levaquin) 500 mg in 100 mls @ 100 mls/hr IV DAILY ON LICENSE OF [facility] Sodium Chloride (Sodium Chloride 0.9%) 1,000 mls @ 75 mls/hr IV .[id number] ON LICENSE OF [facility] Last Admin: 01/15/18 11:10 Dose: 75 mls/hr Pantoprazole Sodium 80 mg/ (Sodium Chloride) 100 mls @ 10 mls/hr IV Q10H ON LICENSE OF [facility] Last Admin: 01/15/18 13:07 Dose: 8 mg/hr, 10 mls/hr Potassium Chloride 20 meq/ (Dextrose) 260 mls @ 130 mls/hr IV ONCE ONE Stop: 01/15/18 15:38 Losartan Potassium (Cozaar) 100 mg PO DAILY ON LICENSE OF [facility] Ondansetron HCl (Zofran) 4 mg IV Q6HP PRN PRN Reason: Nausea And Vomiting Last Admin: 01/15/18 12:35 Dose: 4 mg [facility] Admin: 01/15/18 11:07 Dose: 40 mg Mometasone/Formoterol [Dulera 200 Mcg/5 Mcg Inhaler] 1 dose PO BID ON LICENSE OF [facility] Last Admin: 01/15/18 11:55 Dose: Not Given Prednisone (Prednisone) 10 mg PO [facility] Last Admin: 01/15/18 11:04 Dose: 10 mg Sodium Chloride (Saline Flush) 10 ml IV Q8 ON LICENSE OF [facility] Transfer Discharge Sum: Hosp Hospital course: Ms. Mc is a 63 year old F with stage IV bladder cancer, hypertension and history of hypertension emergency in pulmonary edema, COPD, bladder dysfunction requiring self-catheterization who presents to the ED late on the evening of 01/14 with dyspnea. History is obtained speaking with the patient, as well as reviewing old records obtained from [facility], and clinic records from [facility]. Patient state that she had fairly sudden onset of not being able to breathe that awoke her from sleep. She did not notice any change in the sensation of dyspnea when she stood up. She's noted no lower extremity edema. She's had no wheezing. About the last 4 days she's had a cough but it's been nonproductive. For the last few days she's felt a little feverish, had a maximum temperature 99.4. She's had no chills. She is also complaining of some mid chest pain which is achiness. It gets a little bit worse with respirations. Been ongoing since last evening. It does not radiate, not associated with nausea or vomiting. She states she had a similar presentation about 3 months ago, when she was hospitalized at [facility]. At that time secondary to high blood pressure and fluid on her lungs. That discharge summary indicates she was treated for hypertensive emergency with acute pulmonary edema. Amlodipine was added to her regimen at that time, though I do not see it on her current med list ( attempting to clarify her home meds). The patient has dyspnea on exertion, secondary to her lung disease, that been stable and unchanged. In the emergency department, evaluation revealed critical anemia with a hemoglobin of 6.6. She tells me she had blood work done yesterday which was "okay". Currently attempting to obtain those records from [facility]. She denies any nausea or vomiting, no hematemesis. No diarrhea. No blood in her stool, or dark tarry stools. No hematuria. No hemoptysis. She did receive chemotherapy, records indicate that was gemcitabine and carboplatin. Does approximate 3 weeks ago. She was due to have chemotherapy today (which appeared delayed 2 weeks due to an Escherichia coli and Morganella urinary tract infection on about 12/29/17). ED evaluation also showed pyuria with few bacteria on microscopic and a few epithelial cells. Patient does have bladder dysfunction and routinely does self-catheterization. It's been ongoing for several years. She does indicate that the onset of some suprapubic discomfort last evening. Patient is admitted secondary to critical anemia, dyspnea and urinary tract infection. I was able to discuss the case with Dr. Lewis, who follows her for her bladder cancer. She had a hemoglobin drawn at 3:20 PM on 01/14 that was 8.4, which had decreased to 6.6 when presenting 9 hours later at this facility. Subsequently, following 3 units packed red blood cells, the patient had further bowel movement which was black and melenic, Hemoccult positive. She subsequently developed nausea and emesis, while not grossly bloody, was gastroccult positive. Following the melenic bowel movement, I contacted Dr. Lucas, on-call cloth hand. He does not practice at this facility, agreed to see the patient at [facility]. Dr. Rnadall, hospitalist, has accepted the patient in transfer with Dr. Lucas to consult. The patient does not use nonsteroidals. Her last chemotherapy was approximately 1 week prior to 12/30. An apparent cardiac rub was noted on exam on the morning of 01/15. Stat echocardiogram was obtained to evaluate for evidence of pericardial fluid, as it was at that point unclear where she may have been bleeding. There is no evidence of pericardial effusion. There was significant aortic insufficiency, full report is pending. Problems 1. Acute gastrointestinal hemorrhage, suspected upper, suspected cause of dyspnea at presentation 2. Acute blood loss anemia, status post 3 units packed red blood cells 3. Hypokalemia, repleting 4. Pyuria, minimal bacteriuria with history of UTIs, received dose of levofloxacin at 01:00 on 01/15, cultures pending at [facility] 5. Stage IV bladder cancer, was to have gemcitabine and carboplatin today, followed by Dr. Lewis at [facility] 6. Hypertension - Time Spent with Patient Total time spent providing and/or coordinating transfer services: Greater than 30 minutes Transfer Discharge Sum: Exam - Constitutional Vitals: Vital Signs Temp Pulse Pulse Resp BP BP Pulse Ox 01/15/18 11:11 97.1 F 95 H 16 187/79 96 01/15/18 07:28 96 H 97 01/15/18 06:34 97.7 F 18 163/70 98 01/15/18 04:40 98.5 F 104 H 12 167/77 96 01/15/18 03:00 98.6 F 96 H 12 158/70 98 01/15/18 00:53 143/66 01/15/18 00:33 85 18 100 01/14/18 23:41 96.8 F L 120 H 18 188/89 99 Intake and Output 01/15/18 01/15/18 01/15/18 05:59 13:59 21:59 Intake Total 837 / 837 1000 / 1000 Output Total 600 / 600 1402 / 1402 Balance 237 / 237 -402 / -402 Intake: IV 837 / 837 1000 / 1000 Sodium Chloride 0.9% 1,000 ml @ 1000 / 1000 250 mls/hr IV .Q4H YOLANDA Rx#: [id number] Lactated Ringers 1,000 ml @ 250 687 / 687 mls/hr IV .Q4H YOLANDA Rx#: [id number] Output: Urine Catheter Amount 600 / 600 1400 / 1400 Straight 600 / 600 # of times incontinent of urine 2 / 2 Other: Urine Appearance Clear Straight Clear Urine Color Pale Straight Bright Yellow Urine Odor Normal Stool Size Copious Stool Color Black Stool Consistency Loose # of times incontinent of 1 Bowels Weight 120 lb 8 oz Additional comments: Exam is unchanged from that documented in the history and physical from earlier today. Transfer Discharge Sum: Data Procedures and tests throughout hospitalization: Pending Orders 01/15/18 Consult to Physician [CONS] Stat 01/15/18 00:20 Urine Culture Urgent 01/15/18 00:39 Blood Culture Stat 01/15/18 01:01 Blood Product Documentation NOW 01/15/18 01:42 Admit as Inpatient Routine Elevate head of bed .ROUTINE Notify Provider PRN Vital Signs Q4 Resuscitation Status Routine RD to Adjust Diet/Supplements as Needed Routine Pulse Oximetry .ROUTINE 01/15/18 02:07 Blood Product Documentation NOW 01/15/18 10:10 Ambulate-Progressive PRN Anti-Embolism Devices CONT Condition Routine IV Insertion/Management QSHIFT Intake and Output qshiftio VTE Risk: Assessment ONCE Vital Signs Q4 Weight Monitoring QHS Acetaminophen [Tylenol] 650 mg PO Q6HP PRN Ondansetron [Zofran] 4 mg IV Q6HP PRN Pantoprazole [Protonix] 40 mg PO QAMAC 01/15/18 10:16 Carvedilol [Coreg] 12.5 mg PO BID FLUoxetine HCL [PROzac] 60 mg PO DAILY HYDROcodone/APAP 5/325MG [[place] 5/325Mg] 1 tab PO Q4-6HP PRN buPROPion [Wellbutrin Sr] 150 mg PO BID predniSONE 10 mg PO QAMCC 01/15/18 10:18 0.9 % Sodium Chloride [Sodium Chloride 0.9%] 1,000 ml IV 75 mls/hr 01/15/18 10:23 ALPRAZolam [Xanax] 1 mg PO BIDP PRN 01/15/18 10:30 Patients Own Medication 1 dose PO BID 01/15/18 12:48 ekg monitor tech CONT 01/15/18 13:00 Pantoprazole [Protonix] 80 mg 0.9 % Sodium Chloride [Sodium Chloride 0.9%] 100 ml IV Q10H 01/15/18 13:39 Potassium Chloride 20 meq Dextrose 5% in Water 250 ml IV ONCE 01/15/18 14:00 0.9 % Sodium Chloride [Saline Flush] 10 ml IV Q8 01/15/18 15:00 Levofloxacin [Levaquin] 500 mg in 100 ml IV DAILY 01/15/18 Dinner NPO Except Ice Chips Diet (NOW) 01/16/18 09:00 Losartan [Cozaar] 100 mg PO DAILY Transfer Discharge Sum: A/P - Problem Maintenance (1) GI bleed Status: Acute Qualifiers: GI bleed type/associated pathology: unspecified gastrointestinal hemorrhage type Qualified Code(s): K92.2 - Gastrointestinal hemorrhage, unspecified (2) Anemia Status: Acute Qualifiers: Anemia type: other cause Other causes of anemia: acute posthemorrhagic Qualified Code(s): D62 - Acute posthemorrhagic anemia (3) Bladder cancer metastasized to intrapelvic lymph nodes Status: Chronic (4) Hypertension, essential Status: Chronic (5) Frequent UTI Status: Chronic (6) COPD (chronic obstructive pulmonary disease) Status: Chronic Qualifiers: COPD type: emphysema Emphysema type: panlobular Qualified Code(s): J43.1 - Panlobular emphysema - Plan Functional capacity at transfer: independent ambulation Overall status at transfer: patient is not back to baseline Disposition: er [facility] Quality Measure Queries - VTE Deep Vein Thrombosis/Pulmonary Embolism Present on Admission: No
[2018-01-16] MEDS ORDERED: LOSARTAN 50 MG TABLET PO SCH (09:00)
== END 2018-01-15 16:50 | disposition short-term general hospital (02) | DRG 378 ==
LOC: ED 23:41 → MEDSUR 01-15 02:41
PROVIDERS: ADMIT Internal Medicine; ATTEND Internal Medicine
CPT/HCPCS: 80047; 85014; J1956; J2405; J2550; J3480; J7030; J7050; J7060; J7120